=== PATIENT | male | born 1940 | race Caucasian/White ===

== ENCOUNTER 2016-07-22 18:42 | Inpatient (IN) | payer OTHER ==
[2016-07-22] MEDS ORDERED: MAGNESIUM SULF 50% (8.12 MEQ/2 ML-1 GM VIAL) IVPB ONE (20:44)
[2016-07-22] MEDS ORDERED: predniSONE 20 MG TABLET (UD) PO ONE (20:44)
[2016-07-22] MEDS ORDERED: ALBUTEROL SO4 2.5/IPRATROPIUM 0.5 INH SOL 3 ML VIAL.NEB. NEB ONE ×2 (20:44→20:59)
[2016-07-22] MEDS ORDERED: predniSONE 20 MG TABLET (UD) ONE (20:58)
[2016-07-22] MEDS ORDERED: MAGNESIUM SULF 50% (8.12 MEQ/2 ML-1 GM VIAL) ONE (20:58)
[2016-07-22 21:43] LABS: MCH 32.3 pg (25.7-33.7); MCHC 30.9 g/dl (32.0-35.9); MEAN CELL VOLUME 104.5 fl (80-96); MEAN PLT VOLUME 11.6 fl (7.5-11.1); PLATELET COUNT 87 K/MM3 (134-434); RDW 18.2 % (11.9-15.9)
[2016-07-22 21:46] LABS: WHITE BLOOD COUNT 32.1 K/mm3 (4.0-10.0)
[2016-07-22 21:58] LABS: INR 1.3 (0.82-1.09); PROTHROMBIN TIME (PATIENT) 14.4 SEC (9.98-11.88)
[2016-07-22 22:02] LABS: ALBUMIN 3.8 g/dl (3.4-5.0); BILIRUBIN,TOTAL 0.6 mg/dL (0.2-1.0); CALCIUM 8.3 mg/dL (8.5-10.1); CREATININE 1.8 mg/dL (0.7-1.3); TOT PROT 7.4 g/dl (6.4-8.2)
[2016-07-22 22:04] LABS: TROPONIN I 0.04 ng/ml (0.00-0.05)
[2016-07-22 22:23] LABS: ANISOCYTOSIS 1+; HYPOCHROMIA FEW; MICROCYTOSIS 1+; PLATELET COMMENT2 NO CLUMPING NOTED; PLATELET ESTIMATE DECREASED (NORMAL); POLYCHROMASIA FEW
[2016-07-22 22:24] LABS: DOHLE BODIES 1+; TOXIC GRANULATION FEW
[2016-07-22] MEDS ORDERED: SODIUM CHLORIDE 1,000 ML IV STA (22:35)
[2016-07-22] MEDS ORDERED: LEVOFLOXACIN 500 MG IVPB 100 ML IVPB ONE ×2 (22:35→22:45)
--- NOTE | 2016-07-22 23:18 | PDOC ---
History of Present Illness - History of Present Illness Initial Comments: 07/23/16 20:08 The patient is a 75 year old male, with a significant past medical history of COPD (diagnosed at urgent care today), who presents to the emergency department sent from urgent care for continued dyspnea and coughing after receiving 40 mg prednisone and 2 rounds of nebulizer treatments at urgent care today. The patient presents with his daughter who states she noticed a persistent dry cough and labored breathing for about a week. The patients daughter also states her father was walking slightly unbalanced today. He denies chest pain, headache and dizziness. He denies fever, chills, nausea, vomit, diarrhea and constipation. He denies dysuria, frequency, urgency and hematuria. Allergies: NKDA Social history: daily tobacco use PCP -Dr. Pacheco <Shannon Leiva - Last Filed: 07/23/16 00:36> <Denny Avila - Last Filed: 07/23/16 00:56> - General Chief Complaint: Shortness of Breath Stated Complaint: SOB Time Seen by Provider: 07/22/16 20:06 Past History <Shannon Leiva - Last Filed: 07/23/16 00:36> - Past Medical History COPD: Yes Diabetes: Yes HTN: Yes - Psycho/Social/Smoking Cessation Hx Suicidal Ideation: No Smoking History: Current every day smoker Have you smoked in the past 12 months: No Number of Cigarettes Smoked Daily: 20 Information on smoking cessation initiated: No Hx Alcohol Use: No Drug/Substance Use Hx: No <Denny Avila - Last Filed: 07/23/16 00:56> - Past Medical History Allergies/Adverse Reactions: Allergies Allergy/AdvReac Type Severity Reaction Status Date / Time No Known Allergies Allergy Verified 07/22/16 20:37 Home Medications: Ambulatory Orders Aspirin [ASA -] 81 mg PO DAILY 07/22/16 Glipizide 0 mg PO 07/22/16 Lisinopril 0 mg PO 07/22/16 Metformin HCl 0 mg PO 07/22/16 Simvastatin 0 07/22/16 Review of Systems - Review of Systems Able to Perform ROS?: Yes Comments:: 07/23/16 00:09 CONSTITUTIONAL: No fever, no chills, no fatigue EYES: No visual changes ENT: No ear pain, no sore throat CARDIOVASCULAR: No chest pain, no palpitations RESPIRATORY: (+) cough and SOB GI: No abdominal pain, no nausea, no vomiting, no constipation, no diarrhea GENITOURINARY: No dysuria, no frequency, no hematuria MUSKULOSKELETAL: No backpain, no joint pain, no myalgias SKIN: No rash NEURO: No headache <Shannon Leiva - Last Filed: 07/23/16 00:36> *Physical Exam - Vital Signs Last Vital Signs Temp Pulse Resp BP Pulse Ox 98.3 F 118 H 20 106/47 92 L 07/22/16 19:20 07/22/16 21:43 07/22/16 21:43 07/22/16 21:43 07/22/16 21:43 - Physical Exam Comments: 07/23/16 00:09 CONSTITUTIONAL: (+) in mild respiratory distress. Awake and Alert. Well- appearing; well-nourished; HEAD: Normocephalic; atraumatic EYES: PERRL; EOM intact ENMT: (+) ptosis of left upper lid (known to be old). normal oropharynx NECK: Supple; non-tender; no cervical lymphadenopathy CARD: Normal S1, S2; no murmurs, rubs, or gallops RESP: (+) Mildly tachypneic, Decreased air entry bilaterally, end expiratory wheezing and rhonchi more pronounced on the left side ABD: Soft, non-distended; non-tender; no palpable organomegaly, no palpable hernias EXT: Normal ROM in all four extremities; non-tender to palpation; distal pulses intact SKIN: Warm, dry, no rash NEURO: No focal neurological deficiencies. Gait is normal without ataxia. <Shannon Leiva - Last Filed: 07/23/16 00:36> - Vital Signs Last Vital Signs Temp Pulse Resp BP Pulse Ox 98.3 F 118 H 20 106/47 92 L 07/22/16 19:20 07/22/16 21:43 07/22/16 21:43 07/22/16 21:43 07/22/16 21:43 <Denny Avila - Last Filed: 07/23/16 00:56> Heart Score/ECG Review - ECG Intrepretation Comment:: 07/23/16 00:36 ECG was reviewed by Dr. Avila at 19:42 Impression: Sinus tachycardia. Right bundle branch block. Vent Rate: 112 bpm [place] Interval: 178 ms QTc: 453 ms <Shannon Leiva - Last Filed: 07/23/16 00:36> ED Treatment Course - LABORATORY CBC & Chemistry Diagram: 07/22/16 21:25 07/22/16 21:25 - ADDITIONAL ORDERS Additional order review: Laboratory Results 07/22/16 07/22/16 07/22/16 21:25 21:25 21:25 INR 1.30 H Sodium 140 Potassium 4.8 Chloride 106 Carbon Dioxide 25 Anion Gap 9 BUN 21 H Creatinine 1.8 H Creat Clearance w eGFR 36.77 Random Glucose 230 H Calcium 8.3 L Total Bilirubin 0.6 AST 30 ALT 19 Alkaline Phosphatase 43 L Creatine Kinase 511 H Creatine Kinase Index 0.5 CK-MB (CK-2) 2.655 CK-MB (CK-2) Rel Index Cancelled Troponin I 0.04 Total Protein 7.4 Albumin 3.8 07/22/16 21:25 RBC 3.63 L MCV 104.5 H MCHC 30.9 L RDW 18.2 H MPV 11.6 H Neutrophils % 74.0 Lymphocytes % 5.0 L Monocytes % 4.0 - Medications Given in the ED: ED Medications Discontinued Medications Generic Name Dose Route Start Last Admin Trade Name Freq PRN Reason Stop Dose Admin Albuterol/Ipratropium 2 amp 07/22/16 20:44 07/22/16 21:04 Duoneb - NEB 07/22/16 20:45 2 amp ONCE ONE Administration Levofloxacin 100 mls @ 100 mls/hr 07/22/16 22:35 07/22/16 23:05 Levaquin 500 Mg Premixed Ivpb - IVPB 07/22/16 23:34 100 mls/hr ONCE ONE Administration Sodium Chloride 1,000 mls @ 1,000 mls/hr 07/22/16 22:35 07/22/16 23:25 Normal Saline - IV 07/22/16 23:34 1,000 mls/hr ASDIR STA Administration Magnesium Sulfate 2 gm 07/22/16 20:44 07/22/16 21:04 Magnesium Sulfate IVPB 07/22/16 20:45 2 gm ONCE ONE Administration Prednisone 20 mg 07/22/16 20:44 07/22/16 21:04 Deltasone - PO 07/22/16 20:45 20 mg ONCE ONE Administration <Shannon Leiva - Last Filed: 07/23/16 00:36> - LABORATORY CBC & Chemistry Diagram: 07/22/16 21:25 07/22/16 21:25 - ADDITIONAL ORDERS Additional order review: Laboratory Results 07/22/16 07/22/16 07/22/16 21:25 21:25 21:25 INR 1.30 H Sodium 140 Potassium 4.8 Chloride 106 Carbon Dioxide 25 Anion Gap 9 BUN 21 H Creatinine 1.8 H Creat Clearance w eGFR 36.77 Random Glucose 230 H Calcium 8.3 L Total Bilirubin 0.6 AST 30 ALT 19 Alkaline Phosphatase 43 L Creatine Kinase 511 H CK-MB (CK-2) 2.655 CK-MB (CK-2) Rel Index Cancelled Troponin I 0.04 Total Protein 7.4 Albumin 3.8 07/22/16 21:25 RBC 3.63 L MCV 104.5 H MCHC 30.9 L RDW 18.2 H MPV 11.6 H Neutrophils % 74.0 Lymphocytes % 5.0 L Monocytes % 4.0 - RADIOLOGY Radiology Studies Ordered: Category Date Time Status CHEST PA & LAT [RAD] Stat Radiology 07/22/16 22:36 Taken - Medications Given in the ED: ED Medications Discontinued Medications Generic Name Dose Route Start Last Admin Trade Name Freq PRN Reason Stop Dose Admin Albuterol/Ipratropium 2 amp 07/22/16 20:44 07/22/16 21:04 Duoneb - NEB 07/22/16 20:45 2 amp ONCE ONE Administration Magnesium Sulfate 2 gm 07/22/16 20:44 07/22/16 21:04 Magnesium Sulfate IVPB 07/22/16 20:45 2 gm ONCE ONE Administration Prednisone 20 mg 07/22/16 20:44 07/22/16 21:04 Deltasone - PO 07/22/16 20:45 20 mg ONCE ONE Administration <Denny Avila - Last Filed: 07/23/16 00:56> Medical Decision Making - Medical Decision Making 07/23/16 00:25 75-year-old male with history of COPD, hypertension and diabetes presents to the ER with signs and symptoms of acute COPD exacerbation. Patient had been treated at the urgent care Center prior to presentation to the ER. Initial evaluation, patient was noted to be tachypneic and dyspneic, with significantly decreased air entry bilaterally, rhonchi and end expiratory wheezing. Patient had received Combivent therapy, additional dose of 20 g of prednisone and magnesium sulfate-2 g IV piggyback. Patient and also received IV fluids and Levaquin-500 mg IV piggyback. After period of observation, patient's air entry has improved significantly, he is able to speak full sentences, although becomes dyspneic upon exertion; O2 sat on RA is noted to be 92%. CBC reveals significant leukocytosis with 17% bandemia. Checks x-ray reveals no evidence of infiltrate or effusion at this time. Influenza swab is pending at this time. Patient will require admission further evaluation and treatment of acute COPD exacerbation and supplemental oxygen therapy. <Denny Avila - Last Filed: 07/23/16 00:56> *DC/Admit/Observation/Transfer - Attestations Scribe Attestion: 07/23/16 00:11 Documentation prepared by Shannon Leiva, acting as medical physics professor for Denny Avila MD <Shannon Leiva - Last Filed: 07/23/16 00:36> - Discharge Dispostion Admit: Yes - Attestations Physician Attestion: 07/23/16 00:24 The documentation was prepared by the scribe under my direct supervision. I have reviewed the documentation which correctly represents the findings, medical decision-making and critical action taken by me. <Denny Avila - Last Filed: 07/23/16 00:56> Diagnosis at time of Disposition: Acute exacerbation of chronic obstructive pulmonary disease (COPD), Influenza due to influenza virus, type A, human - Referrals Referrals: Parish Pacheco [Primary Care Provider] -
[2016-07-23] MEDS ORDERED: OSELTAMIVIR PHOSPHATE 75 MG CAPSULE PO ONE (00:54)
[2016-07-23] MEDS ORDERED: OSELTAMIVIR PHOSPHATE 75 MG CAPSULE ONE ×2 (01:25→13:13)
[2016-07-23] MEDS ORDERED: ALBUTEROL SO4 2.5/IPRATROPIUM 0.5 INH SOL 3 ML VIAL.NEB. NEB ONE ×3 (01:55→13:13)
[2016-07-23] MEDS: ALBUTEROL SO4 2.5/IPRATROPIUM 0.5 INH SOL 3 ML VIAL.NEB. NEB SCH ×4 (01:59→13:24)
[2016-07-23] MEDS: INSULIN SLIDING SCALE (NOVOLOG) 1 VIAL SQ SCH ×4 (08:00→23:02)
[2016-07-23] MEDS ORDERED: INSULIN REGULAR HUMAN 100 UNITS/ML *VIAL ONE ×3 (08:03→17:27)
[2016-07-23] MEDS: methylPREDNISolone NA SUCC 40 MG/1 ML VIAL IVPB SCH ×4 (08:05→22:55)
[2016-07-23] MEDS ORDERED: LISINOPRIL 5 MG TABLET (FP) ONE (08:07)
[2016-07-23] MEDS ORDERED: HEPARIN NA (PORCINE) 5,000 UNITS/ML 1ML VIAL ONE (08:07)
[2016-07-23] MEDS ORDERED: ASPIRIN 81 MG CHEWABLE TABLETS ONE (08:07)
[2016-07-23] MEDS ORDERED: methylPREDNISolone NA SUCC 40 MG/1 ML VIAL ONE ×2 (08:40→15:46)
[2016-07-23 08:45] LABS: MCH 33.5 pg (25.7-33.7); MCHC 31.8 g/dl (32.0-35.9); MEAN CELL VOLUME 105.2 fl (80-96); MEAN PLT VOLUME 11.9 fl (7.5-11.1); PLATELET COUNT 80 K/MM3 (134-434); RDW 17.6 % (11.9-15.9); WHITE BLOOD COUNT 28.9 K/mm3 (4.0-10.0)
[2016-07-23] MEDS: HEPARIN NA (PORCINE) 5,000 UNITS/ML 1ML VIAL SQ SCH ×2 (09:15→22:56)
[2016-07-23] MEDS: LISINOPRIL 10 MG TABLET (FP) PO SCH (09:15)
[2016-07-23] MEDS: ASPIRIN 81 MG CHEWABLE TABLETS PO SCH (09:15)
[2016-07-23 09:22] LABS: ALBUMIN 3.3 g/dl (3.4-5.0); BILIRUBIN,TOTAL 0.3 mg/dL (0.2-1.0); CREATININE 1.6 mg/dL (0.7-1.3); TOT PROT 6.6 g/dl (6.4-8.2); TROPONIN I 0.08 ng/ml (0.00-0.05)
[2016-07-23 09:59] LABS: URINE APPEARANCE CLEAR; URINE BILIRUBIN NEGATIVE (NEGATIVE); URINE COLOR LTYELLOW; URINE GLUCOSE (UA) 3+ (NEGATIVE); URINE KETONE NEGATIVE (NEGATIVE); URINE LEUK ESTERASE NEGATIVE (NEGATIVE); URINE NITRITE NEGATIVE (NEGATIVE); URINE UROBILINOGEN NEGATIVE E.U./dl (0.2-1.0)
[2016-07-23 10:03] LABS: URINE BLOOD 2+ (NEGATIVE); URINE PROTEIN 2+ (NEGATIVE)
[2016-07-23 10:41] LABS: MICROCYTOSIS 2+; PLATELET ESTIMATE DECREASED (NORMAL)
--- NOTE | 2016-07-23 10:56 | HP ---
Admitting History and Physical - Admission Chief Complaint: coughing and usteady gait History of Present Illness: The patient is a 75 year old male, with a significant past medical history of COPD (diagnosed at urgent care today), who presents to the emergency department sent from urgent care for continued dyspnea and coughing after receiving 40 mg prednisone and 2 rounds of nebulizer treatments at urgent care today. The patient presents with his daughter who states she noticed a persistent dry cough and labored breathing for about a week. The patients daughter also states her father was walking slightly unbalanced today.patient has been smoking for last 60 yrs one pack per day He denies chest pain, headache and dizziness. He denies fever, chills, nausea, vomit, diarrhea and constipation. He denies dysuria, frequency, urgency and hematuria. per daughter she noticed that last two days her father gait was unsteady and he was losing balance also he was coughing alot [facility] for hypoxia not improvign after prednisone nad albuterol inER got steroids ,nebs ,mag,tamiflu and levaquin and influenza A positve History Source: Family Member Limitations to Obtaining History: Language Barrier - Past Medical History Pulmonary: Yes: COPD - Smoking History Smoking history: Current every day smoker Have you smoked in the past 12 months: No Aproximately how many cigarettes per day: 20 - Alcohol/Substance Use Hx Alcohol Use: No Home Medications - Allergies Allergies/Adverse Reactions: Allergies Allergy/AdvReac Type Severity Reaction Status Date / Time No Known Allergies Allergy Verified 07/22/16 20:37 - Home Medications Home Medications: Ambulatory Orders Aspirin [ASA -] 81 mg PO DAILY 07/22/16 Glipizide 10 mg PO DAILY 07/22/16 Lisinopril 20 mg PO DAILY 07/22/16 Metformin HCl 500 mg PO DAILY 07/22/16 Simvastatin 20 mg PO DAILY 07/22/16 Review of Systems - Review of Systems Respiratory: reports: Cough Physical Examination Vital Signs: Vital Signs Temperature 98.2 F 07/23/16 07:20 Pulse Rate 97 H 07/23/16 07:20 Respiratory Rate 20 07/23/16 07:20 Blood Pressure 105/58 07/23/16 07:20 O2 Sat by Pulse Oximetry (%) 96 07/23/16 07:20 Constitutional: Yes: Calm Neck: Yes: Trachea Midline Cardiovascular: Yes: Regular Rate and Rhythm, S1, S2 Respiratory: Yes: On Nasal O2, Rhonchi, Wheezes Gastrointestinal: Yes: Normal Bowel Sounds, Soft Edema: No Neurological: Yes: Alert, Oriented Labs: CBC, BMP 07/23/16 08:00 07/23/16 08:00 Imaging - Results Chest X-ray: Report Reviewed Problem List - Problems (1) Acute exacerbation of chronic obstructive pulmonary disease (COPD) Assessment/Plan: pulm [\iv abx iv steroids oxygen bronchodiltors tamiflu droplet precautuions Code(s): J44.1 - CHRONIC OBSTRUCTIVE PULMONARY DISEASE W (ACUTE) EXACERBATION (2) Influenza A Assessment/Plan: tamiflu Code(s): J10.1 - FLU DUE TO OTH IDENT INFLUENZA VIRUS W OTH RESP MANIFEST (3) Elevated troponin Assessment/Plan: tele echo asa,statin, prnivil cardio eval Code(s): R79.89 - OTHER SPECIFIED ABNORMAL FINDINGS OF BLOOD CHEMISTRY (4) Unsteady gait Assessment/Plan: ct head neuro ent for YAVAPAI-PRESCOTT and r/o inner ear eitology for gait disturbance PT dvt ppx Code(s): R26.81 - UNSTEADINESS ON FEET
[2016-07-23 11:05] LABS: GRANULAR CASTS 8 /lpf; URINE HYALINE CAST 16 /lpf; URINE MUCUS RARE; URINE RBC <1 /hpf (0-3); URINE WBC 1 /hpf (3-5)
--- NOTE | 2016-07-23 11:19 | PN ---
Progress Note (short form) - Note Progress Note: ID Consult dictated Acute Influenza A Acute exacerbation COPD Leukocytosis possibly steroid-induced Thrombocytopenia, possibly secondary to viral infection Droplet precautions Tamiflu Levaquin Steroids/ bronchodilators
--- NOTE | 2016-07-23 11:21 | CONSULT ---
Consult Consult Specialty:: Neurology - History of Present Illness History of Present Illness: 75 yo consulted for gait difficulty however pat informs he has no problems with gait, motor sensation of cognitive dysfunction. - Past Medical History Pulmonary: Yes: COPD - Alcohol/Substance Use Hx Alcohol Use: No - Smoking History Smoking history: Current every day smoker Have you smoked in the past 12 months: No Aproximately how many cigarettes per day: 20 Home Medications - Allergies Allergies/Adverse Reactions: Allergies Allergy/AdvReac Type Severity Reaction Status Date / Time No Known Allergies Allergy Verified 07/22/16 20:37 - Home Medications Home Medications: Ambulatory Orders Aspirin [ASA -] 81 mg PO DAILY 07/22/16 Glipizide 10 mg PO DAILY 07/22/16 Lisinopril 20 mg PO DAILY 07/22/16 Metformin HCl 500 mg PO DAILY 07/22/16 Simvastatin 20 mg PO DAILY 07/22/16 Physical Exam Vital Signs: Vital Signs Temperature 98.2 F 07/23/16 07:20 Pulse Rate 97 H 07/23/16 07:20 Respiratory Rate 20 07/23/16 07:20 Blood Pressure 105/58 07/23/16 07:20 O2 Sat by Pulse Oximetry (%) 96 07/23/16 07:20 Constitutional: Yes: Well Nourished, No Distress, Mild Distress (respiratory) HENT: Yes: Atraumatic Neck: Yes: Supple Cardiovascular: Yes: Regular Rate and Rhythm Gastrointestinal: Yes: Soft Neurological: Yes: Alert, Oriented, Cran Nerves II-XII Intact. No: Aphasia, Ataxia, Facial Droop, Loss of Sensation, Weakness Labs: CBC, BMP 07/23/16 08:00 07/23/16 08:00 Assessment/Plan No acute neurological complaint or neurological deficit at this time Suggest PT evaluation for physical conditioning and gait training.
--- NOTE | 2016-07-23 12:09 | EKG ---
Test Reason : Blood Pressure : / mmHG Vent. Rate : 112 BPM Atrial Rate : 112 BPM P-R Int : 178 ms QRS Dur : 108 ms QT Int : 332 ms P-R-T Axes : 072 262 035 degrees QTc Int : 453 ms SINUS TACHYCARDIA RIGHT BUNDLE BRANCH BLOCK ABNORMAL ECG NO PREVIOUS ECGS AVAILABLE Confirmed by LORIE DANIEL MD ([id number]) on 07/23/2016 12:09:28 PM Referred By: Confirmed By:LORIE DANIEL MD
--- NOTE | 2016-07-23 12:36 | CONS ---
DATE OF CONSULTATION: 07/23/2016 HISTORY OF PRESENT ILLNESS: The patient is a 75-year-old male with a history of heavy tobacco use evaluated for acute influenza A and exacerbation of COPD. He had developed increasing shortness of breath and cough over the past several days. The family reports that he had had worsening dyspnea and cough productive of yellowish sputum for approximately 1 week. He was taken to an urgent care center where he was given nebulizer treatments and corticosteroids. He was referred to the emergency room with persistent shortness of breath. In the emergency room, patient was short of breath and was noted to have low O2 saturations on room air. An influenza swab was performed and was positive for influenza A. Chest x-ray shows no acute infiltrate. He was started on Tamiflu and given a stat dose of Levaquin. The patient is a heavy smoker. He reports stopping 2 days ago. He reports cough productive of yellowish sputum. He denies any chest pain or hemoptysis. No fever or chills. He denies any ill contacts. No recent hospitalizations. No recent antibiotic therapy. He states that he is up to date with respective influenza and pneumococcal vaccines. PAST MEDICAL HISTORY: Positive for COPD, hypertension, diabetes mellitus. ALLERGIES: No known allergies. MEDICATIONS: Aspirin, glipizide, lisinopril, metformin, simvastatin. SOCIAL HISTORY: Positive for heavy tobacco use, was smoking up until 2 days ago. He denies history of alcohol abuse, recent travel, or pet exposure. SYSTEMS REVIEW: Neurologic: No loss of consciousness, seizure activity, focal weakness. Cardiac: Negative chest pain or palpitations. Respiratory: As per HPI. Gastrointestinal: Negative for vomiting or diarrhea. Genitourinary: Negative for urinary tract infections. LABORATORY DATA: White count 32,000 with left shift, hematocrit 34.6, platelet count 80,000. BUN 23, creatinine 1.6. Chest x-ray showed some increased markings bilaterally, no focal infiltrate. PHYSICAL EXAMINATION: General: He is mildly short of breath at rest on nasal cannula O2. Vital signs: Temperature 98.2, blood pressure 105/58, pulse 97 and regular, respirations 20 per minute. HEENT: Sclerae anicteric. Dry mucous membranes. Heart: Heart sounds S1, S2. Lungs: Scattered rhonchi, crepitations at the bases bilaterally. No wheezing. Abdomen: Soft. No tenderness elicited. No mass, rebound, or rigidity. Extremities: Negative for edema. IMPRESSION: 1. Acute influenza A. 2. Acute exacerbation of chronic obstructive pulmonary disease. 3. Leukocytosis, likely steroid induced. 4. Thrombocytopenia, possibly secondary to viral infection. Place patient on droplet precautions, continue Tamiflu 75 mg p.o. b.i.d. for 5 days, empiric Levaquin. Obtain sputum culture, urine, legionella, and pneumococcal antigens. Intravenous corticosteroids, inhaled bronchodilators. Thank you for the kind referral. LORIE LY M.D. [id number]
[2016-07-23] MEDS ORDERED: LEVOFLOXACIN 500 MG IVPB 100 ML IVPB ONE (13:14)
[2016-07-23] MEDS: LEVOFLOXACIN 500 MG IVPB 100 ML IVPB SCH ×2 (13:24→14:36)
[2016-07-23] MEDS: OSELTAMIVIR PHOSPHATE 75 MG CAPSULE PO SCH ×3 (13:24→22:56)
[2016-07-23] MEDS ORDERED: ALBUTEROL SO4 0.083% IH SOL 2.5 MG/3 ML VIAL.NEB. NEB PRN (14:37)
--- NOTE | 2016-07-23 14:40 | CONSULT ---
Consult Consult Specialty:: PULM/CCM Referred by:: DIONICIO - History of Present Illness Chief Complaint: SOB History of Present Illness: 75 M, COPD due to smoking, presented to urgent care yesterday and was prescribed 40 mg prednisone and 2 rounds of nebulizer treatments. Brought to the ER due to progressive SOB and unsteady gait. No travel history or sick contacts. No documented fevers. No hemoptysis or night sweats. CXR: Hyperinflated lung jacobson / no clear pathology. - History Source History Provided By: Patient Limitations to Obtaining History: Poor Historian - Past Medical History Pulmonary: Yes: COPD - Alcohol/Substance Use Hx Alcohol Use: No - Smoking History Smoking history: Current every day smoker Have you smoked in the past 12 months: No Aproximately how many cigarettes per day: 20 Home Medications - Allergies Allergies/Adverse Reactions: Allergies Allergy/AdvReac Type Severity Reaction Status Date / Time No Known Allergies Allergy Verified 07/22/16 20:37 - Home Medications Home Medications: Ambulatory Orders Aspirin [ASA -] 81 mg PO DAILY 07/22/16 Glipizide 10 mg PO DAILY 07/22/16 Lisinopril 20 mg PO DAILY 07/22/16 Metformin HCl 500 mg PO DAILY 07/22/16 Simvastatin 20 mg PO DAILY 07/22/16 Review of Systems - Review of Systems Constitutional: reports: Malaise, Weakness. denies: Chills, Fever, Night Sweats , Unintentional Wgt. Loss Eyes: reports: No Symptoms HENT: reports: No Symptoms Neck: reports: No Symptoms Cardiovascular: reports: Shortness of Breath. denies: Chest Pain, Edema, Palpitations Respiratory: reports: Cough, SOB, SOB on Exertion, Wheezing. denies: Hemoptysis Gastrointestinal: reports: No Symptoms Genitourinary: reports: No Symptoms Breasts: reports: No Symptoms Reported Musculoskeletal: reports: No Symptoms Integumentary: reports: No Symptoms Neurological: reports: Unsteady Gait Endocrine: reports: No Symptoms Hematology/Lymphatic: reports: No Symptoms Psychiatric: reports: No Symptoms Physical Exam Vital Sings: Vital Signs Temperature 98.2 F 07/23/16 07:20 Pulse Rate 102 H 07/23/16 14:29 Respiratory Rate 19 07/23/16 14:29 Blood Pressure 112/59 07/23/16 14:29 O2 Sat by Pulse Oximetry (%) 96 07/23/16 14:29 Constitutional: Yes: Well Nourished, Mild Distress Eyes: Yes: Conjunctiva Clear, EOM Intact HENT: Yes: Atraumatic, Normocephalic Neck: Yes: Supple, Trachea Midline Cardiovascular: Yes: Tachycardia Respiratory: Yes: Cough, On Nasal O2, Rhonchi, Tachypnea, Wheezes. No: Accessory Muscle Use, Rales, Stridor ...Inspection: Yes: WNL ...Clubbing: No Gastrointestinal: Yes: WNL, Normal Bowel Sounds, Soft Renal/: Yes: WNL Musculoskeletal: Yes: WNL Extremities: Yes: WNL Edema: No Peripheral Pulses WNL: Yes Integumentary: Yes: WNL Neurological: Yes: Alert, Oriented ...Motor Strength: WNL Psychiatric: Yes: WNL, Alert, Oriented Labs: CBC, BMP 07/23/16 08:00 07/23/16 08:00 Imaging - Results Chest X-ray: Report Reviewed, Image Reviewed Problem List - Problems (1) Acute exacerbation of chronic obstructive pulmonary disease (COPD) Code(s): J44.1 - CHRONIC OBSTRUCTIVE PULMONARY DISEASE W (ACUTE) EXACERBATION (2) Elevated troponin Code(s): R79.89 - OTHER SPECIFIED ABNORMAL FINDINGS OF BLOOD CHEMISTRY (3) Influenza A Code(s): J10.1 - FLU DUE TO OTH IDENT INFLUENZA VIRUS W OTH RESP MANIFEST (4) Unsteady gait Code(s): R26.81 - UNSTEADINESS ON FEET Assessment/Plan PLAN: Medrol IV O2 as needed to maintain saturation BD TX Tamiflu Noted placed on empiric Levaquin Check urine Check sputum No smoking Will need outpatient PFTs Will follow Thank you. Dr Esposito
--- NOTE | 2016-07-23 15:09 | CONSULT ---
Consult Consult Specialty:: Cardiology Referred by:: Dr Cerna Reason for Consultation:: Elevated troponin I - History of Present Illness Chief Complaint: SOB, cough History of Present Illness: 75 yo male , smoker, with hx of DM 2, HTN, HLD, new dx of COPD, sent from [facility] emergency department because of continuous dyspnea and coughing after receiving 40 mg prednisone and 2 rounds of nebulizer treatments there. Patient was brought there by his daughter for a persistent dry cough and labored breathing for about a week. Both her (reportedly) and pt reported imbalance which is new. Patient denies hx of MA, CHF or CP syndrome. He further denies CP with this presentation. He says he went to play cards with friends 2 days ago. There, everyone (but him ) was wearing a mask as they were sick. He's been found with the flu and started on treatment We were asked to see him because of trop 0.08 - History Source History Provided By: Patient - Past Medical History Cardio/Vascular: Yes: HTN, Hyperlipdemia Pulmonary: Yes: COPD Endocrine: Yes: Diabetes Mellitus - Past Surgical History Past Surgical History: Yes: Cataract Removal (/bl), Hernia Repair (b/l inguinal) - Alcohol/Substance Use Hx Alcohol Use: No - Smoking History Smoking history: Current every day smoker (1 ppd for 65 yrs) Have you smoked in the past 12 months: No Aproximately how many cigarettes per day: 20 - Social History Usual Living Arrangement: With Spouse Place of : Other ([facility]) Home Medications - Allergies Allergies/Adverse Reactions: Allergies Allergy/AdvReac Type Severity Reaction Status Date / Time No Known Allergies Allergy Verified 07/22/16 20:37 - Home Medications Home Medications: Ambulatory Orders Aspirin [ASA -] 81 mg PO DAILY 07/22/16 Glipizide 10 mg PO DAILY 07/22/16 Lisinopril 20 mg PO DAILY 07/22/16 Metformin HCl 500 mg PO DAILY 07/22/16 Simvastatin 20 mg PO DAILY 07/22/16 Family Disease History - Family Disease History Family History: Denies (premature CAD) Review of Systems - Review of Systems Constitutional: reports: Malaise Eyes: reports: No Symptoms HENT: reports: No Symptoms Neck: reports: No Symptoms Cardiovascular: reports: Shortness of Breath Respiratory: reports: Cough, SOB, SOB on Exertion, Wheezing Gastrointestinal: reports: No Symptoms Neurological: reports: No Symptoms Hematology/Lymphatic: reports: No Symptoms Psychiatric: reports: No Symptoms Physical Exam Vital Signs: Vital Signs Temperature 98.2 F 07/23/16 07:20 Pulse Rate 102 H 07/23/16 14:29 Respiratory Rate 19 07/23/16 14:29 Blood Pressure 112/59 07/23/16 14:29 O2 Sat by Pulse Oximetry (%) 96 07/23/16 14:29 Constitutional: Yes: Mild Distress Eyes: Yes: Conjunctiva Clear HENT: Yes: Atraumatic Neck: Yes: Supple Cardiovascular: Yes: Regular Rate and Rhythm. No: Murmur Respiratory: Yes: Other (decreased BS). No: Rales, Rhonchi, Wheezes Gastrointestinal: Yes: Normal Bowel Sounds, Soft. No: Tenderness Extremities: Yes: Other (warm) Edema: No Peripheral Pulses WNL: Yes Neurological: Yes: Alert, Oriented Psychiatric: Yes: Alert, Oriented Labs: CBC, BMP 07/23/16 08:00 07/23/16 08:00 Imaging - Results Chest X-ray: Report Reviewed, Image Reviewed EKG: Report Reviewed, Image Reviewed Other: Other (Echo (today) -. prelim: Nl EF) Assessment/Plan 75 yo male, with the above history, here with acute influenza and COPD exacerbation He also has mild renal dysfunction (? baseline). His CPK is elevated -. rhabdo may be a factor In the above setting, his trop I has been 0.04 -> 0.08. In the setting of renal dysfunction, this value doesn't necessarily reflect ACS. In addition, EKG is w/o acute changes and pt has no CP His plts are low -. ? from acute infection His WBC is 30 -. from infection vs steroids that he received at [facility] emergency department Rec: Continue trending trop I Cont home BP, DM, and HLD meds Check TFTs and lipids Follow on echo results Consider mild hydration given the rhabdo -. follow renal function Per ID/pulm/Im Thanks! we'll follow!
--- NOTE | 2016-07-23 15:22 | CONSULT ---
Consult - text type - Consultation Consultation Note: Renal Consult for KANG vs. CKD This is a 75 year old Gentleman with PMhx of Hypertension, DM Type 2, COPD who presented with complaints of sob s/p failed neb and oral prednisone Tx at urgent care center and found to have BUN/Cr of 21/1.8. Pt denies any history of CKD. No prior records on [facility] to compare. Does use sporadic steroids on occasion but not recently. No contrast exposure. No Hx of kidney stones but does report right sided flank/lower back pain. No Chest pain. SOB is imporved. No fever chills. + Cough. + sputum production. No recent abx use. PMhx: as above AllergieS: NKDA Family Hx: NC Social Hx: No T/A/D ROS: as per HPI Home Meds: Medication Instructions Recorded Aspirin [ASA -] 81 mg PO DAILY 07/22/16 Glipizide 10 mg PO DAILY 07/22/16 Lisinopril 20 mg PO DAILY 07/22/16 Metformin HCl 500 mg PO DAILY 07/22/16 Simvastatin 20 mg PO DAILY 07/22/16 Vital Signs Temperature 98.2 F 07/23/16 07:20 Pulse Rate 102 H 07/23/16 14:29 Respiratory Rate 19 07/23/16 14:29 Blood Pressure 112/59 07/23/16 14:29 O2 Sat by Pulse Oximetry (%) 96 07/23/16 14:29 Intake & Output 07/20/16 07/21/16 07/22/16 07/23/16 23:59 23:59 23:59 23:59 Weight 161 lb Gen: NAD, awake and alert HEENT: NC/AT, MMM, NO JVD CVS: RRR, No M/R Lungs: Dec BS but no rales or wheeze Abd: Soft NT/ND Ext: no edema, clubbing or cyanosis : No bladder distension CBC, BMP 07/23/16 08:00 07/23/16 08:00 Current Medications Albuterol Sulfate (Ventolin 0.083% Nebulizer Soln -) 1 amp NEB QIDR [facility] Albuterol Sulfate (Ventolin 0.083% Nebulizer Soln -) 1 amp NEB Q4H PRN PRN Reason: SHORT OF BREATH/WHEEZING Aspirin (Asa -) 81 mg PO DAILY [facility] Last Admin: 07/23/16 09:15 Dose: 81 mg Atorvastatin Calcium (Lipitor -) 10 mg PO HS [facility] Heparin Sodium (Porcine) (Heparin -) 5,000 unit SQ BID [facility] Last Admin: 07/23/16 09:15 Dose: 5,000 unit Levofloxacin (Levaquin 500 Mg Premixed Ivpb -) 100 mls @ 100 mls/hr IVPB DAILY [facility] Last Admin: 07/23/16 14:36 Dose: Not Given Insulin Aspart (Novolog Vial Sliding Scale -) 1 vial SQ ACHS [facility] PRN Reason: Protocol Last Admin: 07/23/16 11:00 Dose: 2 units Lisinopril (Prinivil) 10 mg PO DAILY [facility] Last Admin: 07/23/16 09:15 Dose: 10 mg Methylprednisolone Sodium Succinate (Solu-Medrol -) 60 mg IVPB Q6H-IV [facility] Last Admin: 07/23/16 08:47 Dose: 60 mg Oseltamivir Phosphate (Tamiflu -) 75 mg PO BID [facility] Stop: 07/27/16 10:01 Last Admin: 07/23/16 14:36 Dose: Not Given A/P 75 year old Gentleman with PMhx of Hypertension, DM Type 2, COPD who presented with complaints of sob s/p failed neb and oral prednisone Tx at urgent care center and found to have BUN/Cr of 21/1.8. #Acute vs. Chronic Renal insufficiency with proteinuria Cr improved from 1.8 to 1.6 on presentation Check UCPR, FeNA Check Renal US r/o obstruction Trial of IVF NS at 84cc per hour x 24 hours can continue ACEi for now as no hyperkalemia and Cr improved/stable Hold Metformin Dose all med cor Cr Cl less then 50 avoid nsaids, iv contrast #COPD/SOB Continue steroids/Nebs Pulmonary follow up #Hypertension BP is at [place] on Lisinopril #DM Type 2 Check Hgb A1C Hold Metformin because of renal insufficiency Thank you Will follow regine Jaquez DO
[2016-07-23 19:08] LABS: TROPONIN I 0.11 ng/ml (0.00-0.05)
[2016-07-23] MEDS: ATORVASTATIN CA 10 MG TABLET (FP) PO SCH (22:56)
[2016-07-24] MEDS: methylPREDNISolone NA SUCC 40 MG/1 ML VIAL IVPB SCH ×4 (03:50→21:18)
[2016-07-24 04:18] VITALS: BMI 27.8
[2016-07-24] MEDS ORDERED: INSULIN (NOVOLOG) ASPART 100 UNITS/ML 10ML VIAL ONE ×2 (06:03→16:30)
[2016-07-24] MEDS: INSULIN SLIDING SCALE (NOVOLOG) 1 VIAL SQ SCH ×5 (06:03→21:44)
[2016-07-24 09:20] LABS: MCH 33.7 pg (25.7-33.7); MCHC 32.3 g/dl (32.0-35.9); MEAN CELL VOLUME 104.3 fl (80-96); MEAN PLT VOLUME 10.7 fl (7.5-11.1); PLATELET COUNT 76 K/MM3 (134-434); RDW 17.5 % (11.9-15.9); WHITE BLOOD COUNT 19.8 K/mm3 (4.0-10.0)
[2016-07-24] MEDS: LEVOFLOXACIN 500 MG IVPB 100 ML IVPB SCH (09:47)
[2016-07-24] MEDS: LISINOPRIL 10 MG TABLET (FP) PO SCH (09:48)
[2016-07-24] MEDS: OSELTAMIVIR PHOSPHATE 75 MG CAPSULE PO SCH ×2 (09:48→21:18)
[2016-07-24] MEDS: ASPIRIN 81 MG CHEWABLE TABLETS PO SCH (09:48)
[2016-07-24] MEDS: HEPARIN NA (PORCINE) 5,000 UNITS/ML 1ML VIAL SQ SCH ×2 (09:48→21:18)
[2016-07-24 09:59] LABS: ALBUMIN 2.9 g/dl (3.4-5.0); BILIRUBIN,TOTAL 0.2 mg/dL (0.2-1.0); CALCIUM 7.9 mg/dL (8.5-10.1); CREATININE 1.3 mg/dL (0.7-1.3); MAGNESIUM 2.6 mg/dL (1.8-2.4); TOT PROT 6.1 g/dl (6.4-8.2); TROPONIN I 0.08 ng/ml (0.00-0.05)
[2016-07-24] MEDS ORDERED: OSELTAMIVIR PHOSPHATE 75 MG CAPSULE PO SCH (10:00)
--- NOTE | 2016-07-24 10:03 | PN ---
Progress Note, Physician Chief Complaint: FEELS GOOD WANTS TO GO HOME - Current Medication List Current Medications: Active Medications Albuterol Sulfate (Ventolin 0.083% Nebulizer Soln -) 1 amp NEB QIDR [facility] Albuterol Sulfate (Ventolin 0.083% Nebulizer Soln -) 1 amp NEB Q4H PRN PRN Reason: SHORT OF BREATH/WHEEZING Aspirin (Asa -) 81 mg PO DAILY [facility] Last Admin: 07/24/16 09:48 Dose: 81 mg Atorvastatin Calcium (Lipitor -) 10 mg PO HS [facility] Last Admin: 07/23/16 22:56 Dose: 10 mg Heparin Sodium (Porcine) (Heparin -) 5,000 unit SQ BID [facility] Last Admin: 07/24/16 09:48 Dose: 5,000 unit Levofloxacin (Levaquin 500 Mg Premixed Ivpb -) 100 mls @ 100 mls/hr IVPB DAILY [facility] Last Admin: 07/24/16 09:47 Dose: 100 mls/hr Insulin Aspart (Novolog Vial Sliding Scale -) 1 vial SQ ACHS [facility] PRN Reason: Protocol Last Admin: 07/24/16 06:03 Dose: 4 units Lisinopril (Prinivil) 10 mg PO DAILY [facility] Last Admin: 07/24/16 09:48 Dose: 10 mg Methylprednisolone Sodium Succinate (Solu-Medrol -) 60 mg IVPB Q6H-IV [facility] Last Admin: 07/24/16 08:35 Dose: 60 mg Oseltamivir Phosphate (Tamiflu -) 75 mg PO BID [facility] Stop: 07/27/16 10:01 Last Admin: 07/24/16 09:48 Dose: 75 mg - Objective Vital Signs: Vital Signs Temperature 97.7 F 07/24/16 08:00 Pulse Rate 94 H 07/24/16 08:00 Respiratory Rate 20 07/24/16 08:00 Blood Pressure 146/73 07/24/16 08:00 O2 Sat by Pulse Oximetry (%) 94 L 07/23/16 22:00 Constitutional: Yes: Calm Cardiovascular: Yes: Regular Rate and Rhythm, S1, S2 Respiratory: Yes: Wheezes Gastrointestinal: Yes: Normal Bowel Sounds, Soft Edema: No Labs: CBC, BMP 07/24/16 08:00 INR, PTT INR 1.30 (0.82-1.09) H 07/22/16 21:25 Problem List - Problems (1) Acute exacerbation of chronic obstructive pulmonary disease (COPD) Code(s): J44.1 - CHRONIC OBSTRUCTIVE PULMONARY DISEASE W (ACUTE) EXACERBATION (2) Elevated troponin Code(s): R79.89 - OTHER SPECIFIED ABNORMAL FINDINGS OF BLOOD CHEMISTRY (3) Influenza A Code(s): J10.1 - FLU DUE TO OTH IDENT INFLUENZA VIRUS W OTH RESP MANIFEST (4) Unsteady gait Code(s): R26.81 - UNSTEADINESS ON FEET Assessment/Plan (1) Acute exacerbation of chronic obstructive pulmonary disease (COPD) Assessment/Plan: pulm [\iv abx iv steroids oxygen bronchodiltors tamiflu droplet precautuions Code(s): J44.1 - CHRONIC OBSTRUCTIVE PULMONARY DISEASE W (ACUTE) EXACERBATION (2) Influenza A Assessment/Plan: tamiflu Code(s): J10.1 - FLU DUE TO OTH IDENT INFLUENZA VIRUS W OTH RESP MANIFEST (3) Elevated troponin Assessment/Plan: trending up -> f/u tele echo asa,statin, prnivil cardio eval appreciated Code(s): R79.89 - OTHER SPECIFIED ABNORMAL FINDINGS OF BLOOD CHEMISTRY (4) Unsteady gait Assessment/Plan: ct head neuro ent for LAC COURTE OREILLES and r/o inner ear eitology for gait disturbance PT dvt ppx Code(s): R26.81 - UNSTEADINESS ON FEET COMPENSATION AND BENEFITS ADMINISTRATOR FM
--- NOTE | 2016-07-24 11:52 | PN ---
Progress Note, Physician History of Present Illness: No chest pain. - Current Medication List Current Medications: Active Medications Albuterol Sulfate (Ventolin 0.083% Nebulizer Soln -) 1 amp NEB QIDR [facility] Albuterol Sulfate (Ventolin 0.083% Nebulizer Soln -) 1 amp NEB Q4H PRN PRN Reason: SHORT OF BREATH/WHEEZING Aspirin (Asa -) 81 mg PO DAILY [facility] Last Admin: 07/24/16 09:48 Dose: 81 mg Atorvastatin Calcium (Lipitor -) 10 mg PO HS [facility] Last Admin: 07/23/16 22:56 Dose: 10 mg Heparin Sodium (Porcine) (Heparin -) 5,000 unit SQ BID [facility] Last Admin: 07/24/16 09:48 Dose: 5,000 unit Levofloxacin (Levaquin 500 Mg Premixed Ivpb -) 100 mls @ 100 mls/hr IVPB DAILY [facility] Last Admin: 07/24/16 09:47 Dose: 100 mls/hr Insulin Aspart (Novolog Vial Sliding Scale -) 1 vial SQ ACHS [facility] PRN Reason: Protocol Last Admin: 07/24/16 06:03 Dose: 4 units Lisinopril (Prinivil) 10 mg PO DAILY [facility] Last Admin: 07/24/16 09:48 Dose: 10 mg Methylprednisolone Sodium Succinate (Solu-Medrol -) 60 mg IVPB Q6H-IV [facility] Last Admin: 07/24/16 08:35 Dose: 60 mg Oseltamivir Phosphate (Tamiflu -) 75 mg PO BID [facility] Stop: 07/27/16 10:01 Last Admin: 07/24/16 09:48 Dose: 75 mg - Objective Vital Signs: Vital Signs Temperature 97.7 F 07/24/16 08:00 Pulse Rate 94 H 07/24/16 08:00 Respiratory Rate 20 07/24/16 08:00 Blood Pressure 146/73 07/24/16 08:00 O2 Sat by Pulse Oximetry (%) 94 L 07/23/16 22:00 Constitutional: Yes: Well Nourished, No Distress Eyes: Yes: Conjunctiva Clear, EOM Intact HENT: Yes: Atraumatic, Normocephalic Cardiovascular: Yes: Regular Rate and Rhythm Respiratory: Yes: CTA Bilaterally Gastrointestinal: Yes: Normal Bowel Sounds, Soft. No: Tenderness, Rebound Edema: No Labs: CBC, BMP 07/24/16 08:00 01/07/17 08:00 INR, PTT INR 1.30 (0.82-1.09) H 07/22/16 21:25 Assessment/Plan 75 yo male smoker, DM 2, HTN, hyperlipidemia, and new dx of COPD. Admitted from urgent care for persistent dyspnea and cough despite steroids and nebs. Diagnosed with influenza and acute COPD exacerbation. Cardiology consulted for mild troponin elevation. Trop 0.04 -> 0.08 -> 0.11 -> 0.08 in setting of acute renal failure with Cr 1.8. ECG only demonstrated sinus rhythm with RBBB. No chest pain to suggest ACS. Minimally elevated trops in setting of acute renal failure without chest pain is not clinically significant. Echocardiogram on 07/23/16 demonstrated normal LV systolic function, trivial pericardial effusion, mild MAC, mild MR/TR, RVSP 30-40 mmHg. No further inpatient cardiac evaluation or intervention is indicated at this time. Patient would benefit from outpatient nuclear stress test given his cardiac risk factors. However, this should be done after he has recovered from flu/COPD exacerbation. Will see prn. Call with questions.
--- NOTE | 2016-07-24 13:44 | PN ---
Progress Note, Physician History of Present Illness: PULMONARY ALERT,FEELING BETTER,LESS CONGESTED. - Current Medication List Current Medications: Active Medications Albuterol Sulfate (Ventolin 0.083% Nebulizer Soln -) 1 amp NEB QIDR [facility]BEK[facility] Albuterol Sulfate (Ventolin 0.083% Nebulizer Soln -) 1 amp NEB Q4H PRN PRN Reason: SHORT OF BREATH/WHEEZING Aspirin (Asa -) 81 mg PO DAILY [facility] Last Admin: 07/24/16 09:48 Dose: 81 mg Atorvastatin Calcium (Lipitor -) 10 mg PO HS [facility] Last Admin: 07/23/16 22:56 Dose: 10 mg Heparin Sodium (Porcine) (Heparin -) 5,000 unit SQ BID [facility] Last Admin: 07/24/16 09:48 Dose: 5,000 unit Levofloxacin (Levaquin 500 Mg Premixed Ivpb -) 100 mls @ 100 mls/hr IVPB DAILY [facility] Last Admin: 07/24/16 09:47 Dose: 100 mls/hr Insulin Aspart (Novolog Vial Sliding Scale -) 1 vial SQ ACHS [facility] PRN Reason: Protocol Last Admin: 07/24/16 12:07 Dose: 8 units Lisinopril (Prinivil) 10 mg PO DAILY [facility] Last Admin: 07/24/16 09:48 Dose: 10 mg Methylprednisolone Sodium Succinate (Solu-Medrol -) 60 mg IVPB Q6H-IV [facility] Last Admin: 07/24/16 08:35 Dose: 60 mg Oseltamivir Phosphate (Tamiflu -) 75 mg PO BID [facility] Stop: 07/27/16 10:01 Last Admin: 07/24/16 09:48 Dose: 75 mg - Objective Vital Signs: Vital Signs Temperature 97.7 F 07/24/16 08:00 Pulse Rate 94 H 07/24/16 08:00 Respiratory Rate 20 07/24/16 08:00 Blood Pressure 146/73 07/24/16 08:00 O2 Sat by Pulse Oximetry (%) 94 L 07/23/16 22:00 Constitutional: Yes: Well Nourished, Calm Eyes: Yes: WNL HENT: Yes: WNL Neck: Yes: WNL Cardiovascular: Yes: Regular Rate and Rhythm, S1, S2 Respiratory: Yes: Wheezes (SCATTERED SHADIA WHEEZES) Gastrointestinal: Yes: Normal Bowel Sounds, Soft Extremities: Yes: WNL Edema: No Labs: CBC, BMP 07/24/16 08:00 07/24/16 08:00 INR, PTT INR 1.30 (0.82-1.09) H 07/22/16 21:25 Assessment/Plan Problem List - Problems (1) Acute exacerbation of chronic obstructive pulmonary disease (COPD) Code(s): J44.1 - CHRONIC OBSTRUCTIVE PULMONARY DISEASE W (ACUTE) EXACERBATION (2) Elevated troponin Code(s): R79.89 - OTHER SPECIFIED ABNORMAL FINDINGS OF BLOOD CHEMISTRY (3) Influenza A Code(s): J10.1 - FLU DUE TO OTH IDENT INFLUENZA VIRUS W OTH RESP MANIFEST (4) Unsteady gait Code(s): R26.81 - UNSTEADINESS ON FEET Assessment/Plan PLAN: Taper Medrol IV O2 as needed to maintain saturation BD TX Tamiflu PFTs outpatient Low dose chest ct DR DUCKWORTH
--- NOTE | 2016-07-24 15:33 | PN ---
Progress Note, Physician Chief Complaint: Patient seen in bed No new complaints. No chest pains Maintains good urine output. - Current Medication List Current Medications: Active Medications Albuterol Sulfate (Ventolin 0.083% Nebulizer Soln -) 1 amp NEB QIDR REBEK[facility] Albuterol Sulfate (Ventolin 0.083% Nebulizer Soln -) 1 amp NEB Q4H PRN PRN Reason: SHORT OF BREATH/WHEEZING Aspirin (Asa -) 81 mg PO DAILY [facility] Last Admin: 07/24/16 09:48 Dose: 81 mg Atorvastatin Calcium (Lipitor -) 10 mg PO HS [facility] Last Admin: 07/23/16 22:56 Dose: 10 mg Heparin Sodium (Porcine) (Heparin -) 5,000 unit SQ BID [facility] Last Admin: 07/24/16 09:48 Dose: 5,000 unit Levofloxacin (Levaquin 500 Mg Premixed Ivpb -) 100 mls @ 100 mls/hr IVPB DAILY [facility] Last Admin: 07/24/16 09:47 Dose: 100 mls/hr Insulin Aspart (Novolog Vial Sliding Scale -) 1 vial SQ ACHS [facility] PRN Reason: Protocol Last Admin: 07/24/16 12:07 Dose: 8 units Lisinopril (Prinivil) 10 mg PO DAILY [facility] Last Admin: 07/24/16 09:48 Dose: 10 mg Methylprednisolone Sodium Succinate (Solu-Medrol -) 40 mg IVPB Q6H-IV [facility] Last Admin: 07/24/16 14:15 Dose: 40 mg Oseltamivir Phosphate (Tamiflu -) 75 mg PO BID [facility] Stop: 07/27/16 10:01 Last Admin: 07/24/16 09:48 Dose: 75 mg - Objective Vital Signs: Vital Signs Temperature 97.7 F 07/24/16 08:00 Pulse Rate 94 H 07/24/16 08:00 Respiratory Rate 20 07/24/16 08:00 Blood Pressure 146/73 07/24/16 08:00 O2 Sat by Pulse Oximetry (%) 94 L 07/23/16 22:00 Constitutional: Yes: Well Nourished, No Distress, Anxious Eyes: Yes: WNL HENT: Yes: WNL Neck: Yes: WNL, Supple Cardiovascular: Yes: Regular Rate and Rhythm, S1, S2 Respiratory: Yes: Cough, Diminished, Rhonchi Gastrointestinal: Yes: Normal Bowel Sounds Edema: No Labs: CBC, BMP 07/24/16 08:00 07/24/16 08:00 INR, PTT INR 1.30 (0.82-1.09) H 07/22/16 21:25 Problem List - Problems (1) Acute exacerbation of chronic obstructive pulmonary disease (COPD) Code(s): J44.1 - CHRONIC OBSTRUCTIVE PULMONARY DISEASE W (ACUTE) EXACERBATION (2) Elevated troponin Code(s): R79.89 - OTHER SPECIFIED ABNORMAL FINDINGS OF BLOOD CHEMISTRY (3) Influenza A Code(s): J10.1 - FLU DUE TO OTH IDENT INFLUENZA VIRUS W OTH RESP MANIFEST (4) Acute kidney failure Code(s): N17.9 - ACUTE KIDNEY FAILURE, UNSPECIFIED (5) Rhabdomyolysis Code(s): M62.82 - RHABDOMYOLYSIS Assessment/Plan 1. Acute Rhabdomyolysis. Non traumatic. serum CPK tends to stabilize 2. Acute Kidney failure, possibly Hemodynamic in etiology. To some degree the azotemia is steroid dependent. Azotemia improving 3. Acute Respiratory Infection, with possibly acute exacerbation of COPD. Plan: Agree with the current regimen. Monitor the renal functions with you. Thank you. Olive Kidd MD
--- NOTE | 2016-07-24 16:57 | PN ---
Progress Note, Physician History of Present Illness: 75 yo consulted for gait difficulty however pat informs he has no problems with gait, motor sensation of cognitive dysfunction. Would like to take shower. - Current Medication List Current Medications: Active Medications Albuterol Sulfate (Ventolin 0.083% Nebulizer Soln -) 1 amp NEB QIDR REBEKAH Albuterol Sulfate (Ventolin 0.083% Nebulizer Soln -) 1 amp NEB Q4H PRN PRN Reason: SHORT OF BREATH/WHEEZING Aspirin (Asa -) 81 mg PO DAILY [facility] Last Admin: 07/24/16 09:48 Dose: 81 mg Atorvastatin Calcium (Lipitor -) 10 mg PO HS [facility] Last Admin: 07/23/16 22:56 Dose: 10 mg Heparin Sodium (Porcine) (Heparin -) 5,000 unit SQ BID [facility] Last Admin: 07/24/16 09:48 Dose: 5,000 unit Levofloxacin (Levaquin 500 Mg Premixed Ivpb -) 100 mls @ 100 mls/hr IVPB DAILY [facility] Last Admin: 07/24/16 09:47 Dose: 100 mls/hr Insulin Aspart (Novolog Vial Sliding Scale -) 1 vial SQ ACHS [facility] PRN Reason: Protocol Last Admin: 07/24/16 16:42 Dose: 4 units Lisinopril (Prinivil) 10 mg PO DAILY [facility] Last Admin: 07/24/16 09:48 Dose: 10 mg Methylprednisolone Sodium Succinate (Solu-Medrol -) 40 mg IVPB Q6H-IV [facility] Last Admin: 07/24/16 14:15 Dose: 40 mg Oseltamivir Phosphate (Tamiflu -) 75 mg PO BID [facility] Stop: 07/27/16 10:01 Last Admin: 07/24/16 09:48 Dose: 75 mg - Objective Vital Signs: Vital Signs Temperature 97.5 F L 07/24/16 15:28 Pulse Rate 85 07/24/16 15:28 Respiratory Rate 20 07/24/16 08:00 Blood Pressure 146/73 07/24/16 08:00 O2 Sat by Pulse Oximetry (%) 94 L 07/24/16 09:00 Neurological: Yes: Alert, Babinski negative, Cran Nerves II-XII Intact. No: Aphasia, Ataxia, Facial Droop, Loss of Sensation, Unsteady Gait, Weakness Labs: CBC, BMP 07/24/16 08:00 07/24/16 08:00 INR, PTT INR 1.30 (0.82-1.09) H 07/22/16 21:25 Assessment/Plan No acute neurological complaint or neurological deficit at this time with neg head ct Suggest PT evaluation for physical conditioning and gait training. Will follow intermittently, please call if needed.
[2016-07-24] MEDS: ALBUTEROL SO4 0.083% IH SOL 2.5 MG/3 ML VIAL.NEB. NEB SCH (19:34)
[2016-07-24] MEDS ORDERED: PT OWN MED DRAWER 7, Y5N ONE (20:56)
[2016-07-24] MEDS: ATORVASTATIN CA 10 MG TABLET (FP) PO SCH (21:18)
[2016-07-25] MEDS: methylPREDNISolone NA SUCC 40 MG/1 ML VIAL IVPB SCH ×4 (02:06→21:13)
[2016-07-25] MEDS: INSULIN SLIDING SCALE (NOVOLOG) 1 VIAL SQ SCH ×4 (06:36→21:13)
[2016-07-25 08:27] LABS: BASOPHIL 0.2 % (0-2.0); MCH 33.5 pg (25.7-33.7); MCHC 32.4 g/dl (32.0-35.9); MEAN CELL VOLUME 103.5 fl (80-96); MEAN PLT VOLUME 12.2 fl (7.5-11.1); NEUTROPHILS 93.4 % (42.8-82.8); PLATELET COUNT 80 K/MM3 (134-434); RDW 17.3 % (11.9-15.9); WHITE BLOOD COUNT 11.8 K/mm3 (4.0-10.0)
[2016-07-25 08:56] LABS: ALBUMIN 2.8 g/dl (3.4-5.0); CALCIUM 8.2 mg/dL (8.5-10.1); CREATININE 1.3 mg/dL (0.7-1.3)
[2016-07-25 08:58] LABS: BILIRUBIN,TOTAL 0.2 mg/dL (0.2-1.0); TOT PROT 5.7 g/dl (6.4-8.2)
[2016-07-25] MEDS ORDERED: PT OWN MED DRAWER 7, Y5N ONE (09:50)
[2016-07-25] MEDS: HEPARIN NA (PORCINE) 5,000 UNITS/ML 1ML VIAL SQ SCH ×2 (09:53→21:13)
[2016-07-25] MEDS: LISINOPRIL 10 MG TABLET (FP) PO SCH (09:54)
[2016-07-25] MEDS: OSELTAMIVIR PHOSPHATE 75 MG CAPSULE PO SCH ×2 (09:54→21:12)
[2016-07-25] MEDS: LEVOFLOXACIN 500 MG IVPB 100 ML IVPB SCH (09:54)
[2016-07-25] MEDS: ASPIRIN 81 MG CHEWABLE TABLETS PO SCH (09:54)
[2016-07-25] MEDS ORDERED: INSULIN (NOVOLOG) ASPART 100 UNITS/ML 10ML VIAL ONE (11:25)
[2016-07-25] MEDS: ALBUTEROL SO4 0.083% IH SOL 2.5 MG/3 ML VIAL.NEB. NEB SCH ×3 (12:00→23:04)
--- NOTE | 2016-07-25 12:36 | PN ---
Progress Note, Physician Chief Complaint: FEELS GOOD - Current Medication List Current Medications: Active Medications Albuterol Sulfate (Ventolin 0.083% Nebulizer Soln -) 1 amp NEB QIDR [facility] Last Admin: 07/24/16 19:34 Dose: 1 amp Albuterol Sulfate (Ventolin 0.083% Nebulizer Soln -) 1 amp NEB Q4H PRN PRN Reason: SHORT OF BREATH/WHEEZING Aspirin (Asa -) 81 mg PO DAILY [facility] Last Admin: 07/25/16 09:54 Dose: 81 mg Atorvastatin Calcium (Lipitor -) 10 mg PO HS [facility] Last Admin: 07/24/16 21:18 Dose: 10 mg Heparin Sodium (Porcine) (Heparin -) 5,000 unit SQ BID [facility] Last Admin: 07/25/16 09:53 Dose: 5,000 unit Levofloxacin (Levaquin 500 Mg Premixed Ivpb -) 100 mls @ 100 mls/hr IVPB DAILY [facility] Last Admin: 07/25/16 09:54 Dose: 100 mls/hr Insulin Aspart (Novolog Vial Sliding Scale -) 1 vial SQ ACHS [facility] PRN Reason: Protocol Last Admin: 07/25/16 11:28 Dose: 8 units Lisinopril (Prinivil) 10 mg PO DAILY [facility] Last Admin: 07/25/16 09:54 Dose: 10 mg Methylprednisolone Sodium Succinate (Solu-Medrol -) 40 mg IVPB Q6H-IV [facility] Last Admin: 07/25/16 09:54 Dose: 40 mg Oseltamivir Phosphate (Tamiflu -) 75 mg PO BID [facility] Stop: 07/27/16 10:01 Last Admin: 07/25/16 09:54 Dose: 75 mg - Objective Vital Signs: Vital Signs Temperature 98.0 F 07/25/16 09:01 Pulse Rate 71 07/25/16 09:01 Respiratory Rate 20 07/25/16 09:01 Blood Pressure 131/65 07/25/16 09:01 O2 Sat by Pulse Oximetry (%) 95 07/25/16 09:00 Constitutional: Yes: Calm Cardiovascular: Yes: Regular Rate and Rhythm, S1, S2 Respiratory: Yes: Wheezes Gastrointestinal: Yes: Normal Bowel Sounds, Soft Edema: No Labs: CBC, BMP 07/25/16 07:30 07/25/16 07:30 INR, PTT INR 1.30 (0.82-1.09) H 07/22/16 21:25 Problem List - Problems (1) Acute exacerbation of chronic obstructive pulmonary disease (COPD) Code(s): J44.1 - CHRONIC OBSTRUCTIVE PULMONARY DISEASE W (ACUTE) EXACERBATION (2) Elevated troponin Code(s): R79.89 - OTHER SPECIFIED ABNORMAL FINDINGS OF BLOOD CHEMISTRY (3) Influenza A Code(s): J10.1 - FLU DUE TO OTH IDENT INFLUENZA VIRUS W OTH RESP MANIFEST (4) Unsteady gait Code(s): R26.81 - UNSTEADINESS ON FEET (5) Diabetes Code(s): E11.9 - TYPE 2 DIABETES MELLITUS WITHOUT COMPLICATIONS Assessment/Plan (1) Acute exacerbation of chronic obstructive pulmonary disease (COPD) Assessment/Plan: pulm iv abx iv steroids oxygen bronchodiltors tamiflu droplet precautuions Code(s): J44.1 - CHRONIC OBSTRUCTIVE PULMONARY DISEASE W (ACUTE) EXACERBATION (2) Influenza A Assessment/Plan: tamiflu Code(s): J10.1 - FLU DUE TO OTH IDENT INFLUENZA VIRUS W OTH RESP MANIFEST (3) Elevated troponin Assessment/Plan: trending up -> f/u tele echo asa,statin, prnivil cardio eval appreciated Code(s): R79.89 - OTHER SPECIFIED ABNORMAL FINDINGS OF BLOOD CHEMISTRY (4) Unsteady gait Assessment/Plan: ct head neuro ent for [place] and r/o inner ear eitology for gait disturbance PT dvt ppx Code(s): R26.81 - UNSTEADINESS ON FEET (5) Diabetes Code(s): E11.9 - TYPE 2 DIABETES MELLITUS WITHOUT COMPLICATIONS a1c 6.9 bgm/iss - sam HOGAN
[2016-07-25] MEDS: INSULIN DETEMIR 100 UNITS/ML MDV SQ SCH ×2 (13:20→21:13)
--- NOTE | 2016-07-25 14:11 | PN ---
Progress Note, Physician History of Present Illness: pulmonary alert,feeling better,less congested - Current Medication List Current Medications: Active Medications Albuterol Sulfate (Ventolin 0.083% Nebulizer Soln -) 1 amp NEB QIDR [facility] Last Admin: 07/25/16 12:00 Dose: 1 amp Albuterol Sulfate (Ventolin 0.083% Nebulizer Soln -) 1 amp NEB Q4H PRN PRN Reason: SHORT OF BREATH/WHEEZING Aspirin (Asa -) 81 mg PO DAILY [facility] Last Admin: 07/25/16 09:54 Dose: 81 mg Atorvastatin Calcium (Lipitor -) 10 mg PO HS [facility] Last Admin: 07/24/16 21:18 Dose: 10 mg Heparin Sodium (Porcine) (Heparin -) 5,000 unit SQ BID [facility] Last Admin: 07/25/16 09:53 Dose: 5,000 unit Levofloxacin (Levaquin 500 Mg Premixed Ivpb -) 100 mls @ 100 mls/hr IVPB DAILY [facility] Last Admin: 07/25/16 09:54 Dose: 100 mls/hr Insulin Aspart (Novolog Vial Sliding Scale -) 1 vial SQ ACHS [facility] PRN Reason: Protocol Last Admin: 07/25/16 11:28 Dose: 8 units Insulin Detemir (Levemir Vial) 5 units SQ BID@0700,2200 [facility] Last Admin: 07/25/16 13:20 Dose: 5 units Lisinopril (Prinivil) 10 mg PO DAILY [facility] Last Admin: 07/25/16 09:54 Dose: 10 mg Methylprednisolone Sodium Succinate (Solu-Medrol -) 40 mg IVPB Q6H-IV [facility] Last Admin: 07/25/16 09:54 Dose: 40 mg Oseltamivir Phosphate (Tamiflu -) 75 mg PO BID [facility] Stop: 07/27/16 10:01 Last Admin: 07/25/16 09:54 Dose: 75 mg - Objective Vital Signs: Vital Signs Temperature 98.0 F 07/25/16 09:01 Pulse Rate 71 07/25/16 09:01 Respiratory Rate 20 07/25/16 09:01 Blood Pressure 131/65 07/25/16 09:01 O2 Sat by Pulse Oximetry (%) 95 07/25/16 09:00 Constitutional: Yes: Well Nourished, Calm Eyes: Yes: WNL HENT: Yes: WNL Cardiovascular: Yes: Regular Rate and Rhythm, S1, S2 Respiratory: Yes: Wheezes (bilateral wheezes) Gastrointestinal: Yes: Normal Bowel Sounds, Soft Extremities: Yes: WNL Edema: No Labs: CBC, BMP 07/25/16 07:30 07/25/16 07:30 INR, PTT INR 1.30 (0.82-1.09) H 07/22/16 21:25 Assessment/Plan Problem List - Problems (1) Acute exacerbation of chronic obstructive pulmonary disease (COPD) Code(s): J44.1 - CHRONIC OBSTRUCTIVE PULMONARY DISEASE W (ACUTE) EXACERBATION (2) Elevated troponin Code(s): R79.89 - OTHER SPECIFIED ABNORMAL FINDINGS OF BLOOD CHEMISTRY (3) Influenza A Code(s): J10.1 - FLU DUE TO OTH IDENT INFLUENZA VIRUS W OTH RESP MANIFEST (4) Unsteady gait Code(s): R26.81 - UNSTEADINESS ON FEET THROMBOCYTOPENIA Assessment/Plan PLAN: Taper Medrol IV O2 as needed to maintain saturation BD TX Tamiflu PFTs outpatient Low dose chest ct solumedrol same dose monitor plt ct DR DUCKWORTH
--- NOTE | 2016-07-25 14:28 | PN ---
Progress Note, Physician Chief Complaint: Patient seen in bed No new complaints. Still with cough No chest pains Maintains good urine output. - Current Medication List Current Medications: Active Medications Albuterol Sulfate (Ventolin 0.083% Nebulizer Soln -) 1 amp NEB QIDR [facility] Last Admin: 07/25/16 12:00 Dose: 1 amp Albuterol Sulfate (Ventolin 0.083% Nebulizer Soln -) 1 amp NEB Q4H PRN PRN Reason: SHORT OF BREATH/WHEEZING Aspirin (Asa -) 81 mg PO DAILY [facility] Last Admin: 07/25/16 09:54 Dose: 81 mg Atorvastatin Calcium (Lipitor -) 10 mg PO HS [facility] Last Admin: 07/24/16 21:18 Dose: 10 mg Heparin Sodium (Porcine) (Heparin -) 5,000 unit SQ BID [facility] Last Admin: 07/25/16 09:53 Dose: 5,000 unit Levofloxacin (Levaquin 500 Mg Premixed Ivpb -) 100 mls @ 100 mls/hr IVPB DAILY [facility] Last Admin: 07/25/16 09:54 Dose: 100 mls/hr Insulin Aspart (Novolog Vial Sliding Scale -) 1 vial SQ ACHS [facility] PRN Reason: Protocol Last Admin: 07/25/16 11:28 Dose: 8 units Insulin Detemir (Levemir Vial) 5 units SQ BID@0700,2200 [facility] Last Admin: 07/25/16 13:20 Dose: 5 units Lisinopril (Prinivil) 10 mg PO DAILY [facility] Last Admin: 07/25/16 09:54 Dose: 10 mg Methylprednisolone Sodium Succinate (Solu-Medrol -) 40 mg IVPB Q6H-IV [facility] Last Admin: 07/25/16 09:54 Dose: 40 mg Oseltamivir Phosphate (Tamiflu -) 75 mg PO BID [facility] Stop: 07/27/16 10:01 Last Admin: 07/25/16 09:54 Dose: 75 mg - Objective Vital Signs: Vital Signs Temperature 98.0 F 07/25/16 09:01 Pulse Rate 71 07/25/16 09:01 Respiratory Rate 20 07/25/16 09:01 Blood Pressure 131/65 07/25/16 09:01 O2 Sat by Pulse Oximetry (%) 95 07/25/16 09:00 Constitutional: Yes: Well Nourished Eyes: Yes: WNL, Conjunctiva Clear HENT: Yes: WNL, Atraumatic, Normocephalic Neck: Yes: WNL, Supple, Trachea Midline Cardiovascular: Yes: WNL, Regular Rate and Rhythm Respiratory: Yes: Regular, Poor Air Entry, Rhonchi Gastrointestinal: Yes: WNL, Normal Bowel Sounds Genitourinary: Yes: WNL Labs: CBC, BMP 07/25/16 07:30 07/25/16 07:30 INR, PTT INR 1.30 (0.82-1.09) H 07/22/16 21:25 Problem List - Problems (1) Acute exacerbation of chronic obstructive pulmonary disease (COPD) Code(s): J44.1 - CHRONIC OBSTRUCTIVE PULMONARY DISEASE W (ACUTE) EXACERBATION (2) Elevated troponin Code(s): R79.89 - OTHER SPECIFIED ABNORMAL FINDINGS OF BLOOD CHEMISTRY (3) Influenza A Code(s): J10.1 - FLU DUE TO OTH IDENT INFLUENZA VIRUS W OTH RESP MANIFEST (4) Acute kidney failure Code(s): N17.9 - ACUTE KIDNEY FAILURE, UNSPECIFIED (5) Rhabdomyolysis Code(s): M62.82 - RHABDOMYOLYSIS Assessment/Plan 1. Acute Rhabdomyolysis. Non traumatic. Serum CPK tends to stabilize towards normal 2. Acute Kidney failure, possibly Hemodynamic in etiology. To some degree the azotemia is steroid dependent. Azotemia improving. Can't r/o a pre-existing Pre Renal azotemia. 3. Acute Respiratory Infection, with possibly acute exacerbation of COPD. 4. Influenza... On Tamiflu Plan: Agree with the current regimen. Will monitor the renal functions with you. Thank you. Olive Kidd MD
[2016-07-25] MEDS ORDERED: INSULIN DETEMIR 100 UNITS/ML MDV SQ ONE (21:09)
[2016-07-25] MEDS: ATORVASTATIN CA 10 MG TABLET (FP) PO SCH (21:12)
[2016-07-26] MEDS: methylPREDNISolone NA SUCC 40 MG/1 ML VIAL IVPB SCH ×3 (02:29→09:33)
[2016-07-26] MEDS: ALBUTEROL SO4 0.083% IH SOL 2.5 MG/3 ML VIAL.NEB. NEB SCH ×3 (06:40→18:55)
[2016-07-26] MEDS: INSULIN SLIDING SCALE (NOVOLOG) 1 VIAL SQ SCH ×4 (06:47→23:14)
[2016-07-26] MEDS: INSULIN DETEMIR 100 UNITS/ML MDV SQ SCH ×2 (06:47→23:13)
--- NOTE | 2016-07-26 08:19 | PN ---
Progress Note, Physician History of Present Illness: CONTINUES WITH COUGH - Current Medication List Current Medications: Active Medications Albuterol Sulfate (Ventolin 0.083% Nebulizer Soln -) 1 amp NEB QIDR [facility] Last Admin: 07/26/16 06:40 Dose: 1 amp Albuterol Sulfate (Ventolin 0.083% Nebulizer Soln -) 1 amp NEB Q4H PRN PRN Reason: SHORT OF BREATH/WHEEZING Aspirin (Asa -) 81 mg PO DAILY [facility] Last Admin: 07/25/16 09:54 Dose: 81 mg Atorvastatin Calcium (Lipitor -) 10 mg PO HS [facility] Last Admin: 07/25/16 21:12 Dose: 10 mg Heparin Sodium (Porcine) (Heparin -) 5,000 unit SQ BID [facility] Last Admin: 07/25/16 21:13 Dose: 5,000 unit Levofloxacin (Levaquin 500 Mg Premixed Ivpb -) 100 mls @ 100 mls/hr IVPB DAILY [facility] Last Admin: 07/25/16 09:54 Dose: 100 mls/hr Insulin Aspart (Novolog Vial Sliding Scale -) 1 vial SQ ACHS [facility] PRN Reason: Protocol Last Admin: 07/26/16 06:47 Dose: 4 units Insulin Detemir (Levemir Vial) 5 units SQ BID@0700,2200 [facility] Last Admin: 07/26/16 06:47 Dose: 5 units Lisinopril (Prinivil) 10 mg PO DAILY [facility] Last Admin: 07/25/16 09:54 Dose: 10 mg Methylprednisolone Sodium Succinate (Solu-Medrol -) 40 mg IVPB Q6H-IV [facility] Last Admin: 07/26/16 02:29 Dose: 40 mg Oseltamivir Phosphate (Tamiflu -) 75 mg PO BID [facility] Stop: 07/27/16 10:01 Last Admin: 07/25/16 21:12 Dose: 75 mg - Objective Vital Signs: Vital Signs Temperature 98.1 F 07/26/16 05:00 Pulse Rate 65 07/26/16 05:00 Respiratory Rate 16 07/26/16 05:00 Blood Pressure 129/59 07/26/16 05:00 O2 Sat by Pulse Oximetry (%) 95 07/25/16 21:00 Cardiovascular: Yes: Regular Rate and Rhythm Respiratory: Yes: On Nasal O2, Rhonchi Gastrointestinal: Yes: Normal Bowel Sounds, Soft Edema: No Labs: INR, PTT INR 1.30 (0.82-1.09) H 07/22/16 21:25 Assessment/Plan Assessment/Plan (1) Acute exacerbation of chronic obstructive pulmonary disease (COPD) Assessment/Plan: pulm iv abx iv steroids oxygen bronchodilators tamiflu droplet precautions CT OF CHEST Code(s): J44.1 - CHRONIC OBSTRUCTIVE PULMONARY DISEASE W (ACUTE) EXACERBATION (2) Influenza A Assessment/Plan: tamiflu Code(s): J10.1 - FLU DUE TO OTH IDENT INFLUENZA VIRUS W OTH RESP MANIFEST (3) Elevated troponin Assessment/Plan: trending up -> f/u tele echo asa,statin, Prinivil cardio eval appreciated Code(s): R79.89 - OTHER SPECIFIED ABNORMAL FINDINGS OF BLOOD CHEMISTRY (4) Unsteady gait Assessment/Plan: ct head neuro ent for [place] and r/o inner ear etiology for gait disturbance PT dvt ppx Code(s): R26.81 - UNSTEADINESS ON FEET (5) Diabetes Code(s): E11.9 - TYPE 2 DIABETES MELLITUS WITHOUT COMPLICATIONS a1c 6.9 bgm/iss - levemir
[2016-07-26 08:25] LABS: BASOPHIL 0.1 % (0-2.0); MCH 33.8 pg (25.7-33.7); MCHC 32.8 g/dl (32.0-35.9); MEAN CELL VOLUME 102.9 fl (80-96); NEUTROPHILS 92.2 % (42.8-82.8); PLATELET COUNT 88 K/MM3 (134-434); WHITE BLOOD COUNT 7.9 K/mm3 (4.0-10.0)
[2016-07-26 08:49] LABS: ALBUMIN 2.9 g/dl (3.4-5.0); CALCIUM 8.5 mg/dL (8.5-10.1); CREATININE 1.2 mg/dL (0.7-1.3)
[2016-07-26 08:52] LABS: BILIRUBIN,TOTAL 0.3 mg/dL (0.2-1.0); TOT PROT 5.7 g/dl (6.4-8.2)
[2016-07-26] MEDS: LEVOFLOXACIN 500 MG IVPB 100 ML IVPB SCH (09:32)
[2016-07-26] MEDS: LISINOPRIL 10 MG TABLET (FP) PO SCH (09:33)
[2016-07-26] MEDS: HEPARIN NA (PORCINE) 5,000 UNITS/ML 1ML VIAL SQ SCH ×2 (09:33→23:13)
[2016-07-26] MEDS: ASPIRIN 81 MG CHEWABLE TABLETS PO SCH (09:33)
[2016-07-26] MEDS: OSELTAMIVIR PHOSPHATE 75 MG CAPSULE PO SCH ×2 (09:33→23:12)
--- NOTE | 2016-07-26 11:00 | PN ---
Progress Note (short form) - Note Progress Note: Neurology Consult 75 yo consulted for gait difficulty and seen by Dr. Campbell. Was ambulating appropriately during my encounter and reports getting better. Medical management ongoing. Has underlying COPD, remains a smoker. On ASA 81mg for stroke prevention along with Statin. Active Medications Albuterol Sulfate (Ventolin 0.083% Nebulizer Soln -) 1 amp NEB QIDR [facility] Last Admin: 07/26/16 06:40 Dose: 1 amp Albuterol Sulfate (Ventolin 0.083% Nebulizer Soln -) 1 amp NEB Q4H PRN PRN Reason: SHORT OF BREATH/WHEEZING Aspirin (Asa -) 81 mg PO DAILY [facility] Last Admin: 07/26/16 09:33 Dose: 81 mg Atorvastatin Calcium (Lipitor -) 10 mg PO HS [facility] Last Admin: 07/25/16 21:12 Dose: 10 mg Heparin Sodium (Porcine) (Heparin -) 5,000 unit SQ BID [facility] Last Admin: 07/26/16 09:33 Dose: 5,000 unit Levofloxacin (Levaquin 500 Mg Premixed Ivpb -) 100 mls @ 100 mls/hr IVPB DAILY [facility] Last Admin: 07/26/16 09:32 Dose: 100 mls/hr Insulin Aspart (Novolog Vial Sliding Scale -) 1 vial SQ ACHS [facility] PRN Reason: Protocol Last Admin: 07/26/16 06:47 Dose: 4 units Insulin Detemir (Levemir Vial) 5 units SQ BID@0700,2200 [facility] Last Admin: 07/26/16 06:47 Dose: 5 units Lisinopril (Prinivil) 10 mg PO DAILY [facility] Last Admin: 07/26/16 09:33 Dose: 10 mg Methylprednisolone Sodium Succinate (Solu-Medrol -) 40 mg IVPB Q8H-IV [facility] Last Admin: 07/26/16 09:33 Dose: 40 mg Oseltamivir Phosphate (Tamiflu -) 75 mg PO BID [facility] Stop: 07/27/16 10:01 Last Admin: 07/26/16 09:33 Dose: 75 mg Physical Exam Vital Signs: Vital Signs Temperature 98.2 F 07/23/16 07:20 Pulse Rate 97 H 07/23/16 07:20 Respiratory Rate 20 07/23/16 07:20 Blood Pressure 105/58 07/23/16 07:20 O2 Sat by Pulse Oximetry (%) 96 01/06/17 07:20 Constitutional: Yes: Well Nourished, No Distress, Mild Distress (respiratory) HENT: Yes: Atraumatic Neck: Yes: Supple Cardiovascular: Yes: Regular Rate and Rhythm Gastrointestinal: Yes: Soft Neurological: Yes: Alert, Oriented, Cran Nerves II-XII Intact. No: Aphasia, Ataxia, Facial Droop, Loss of Sensation, Weakness Labs: CBCD WBC 7.9 K/mm3 (4.0-10.0) D 07/26/16 07:00 RBC 3.30 M/mm3 (4.00-5.60) L 07/26/16 07:00 Hgb 11.2 GM/dL (11.7-16.9) L 07/26/16 07:00 Hct 34.0 % (35.4-49) L 07/26/16 07:00 MCV 102.9 fl (80-96) H 07/26/16 07:00 MCHC 32.8 g/dl (32.0-35.9) 07/26/16 07:00 RDW 17.0 % (11.9-15.9) H 07/26/16 07:00 Plt Count 88 K/MM3 (134-434) L 07/26/16 07:00 MPV 12.0 fl (7.5-11.1) H 07/26/16 07:00 CMP Sodium 141 mmol/L (136-145) 07/26/16 07:00 Potassium 4.3 mmol/L (3.5-5.1) 07/26/16 07:00 Chloride 103 mmol/L (98-107) 07/26/16 07:00 Carbon Dioxide 29 mmol/L (21-32) 07/26/16 07:00 Anion Gap 9 (8-16) 07/26/16 07:00 BUN 27 mg/dL (7-18) H 07/26/16 07:00 Creatinine 1.2 mg/dL (0.7-1.3) 07/26/16 07:00 Creat Clearance w eGFR 58.71 (>60) 07/26/16 07:00 Calcium 8.5 mg/dL (8.5-10.1) 07/26/16 07:00 Total Bilirubin 0.3 mg/dL (0.2-1.0) D 07/26/16 07:00 AST 18 U/L (15-37) 07/26/16 07:00 ALT 24 U/L (12-78) 07/26/16 07:00 Alkaline Phosphatase 33 U/L (45-117) L 07/26/16 07:00 Total Protein 5.7 g/dl (6.4-8.2) L 07/26/16 07:00 Albumin 2.9 g/dl (3.4-5.0) L 07/26/16 07:00 Assessment/Plan 75 yo consulted for gait difficulty and seen by Dr. Campbell. Was ambulating appropriately during my encounter and reports getting better. Medical management ongoing. Has underlying COPD, remains a smoker. On ASA 81mg for stroke prevention along with Statin. Continue BP control, on Lisinopril, goal < 140/90. PT for physical conditioning and gait training.
--- NOTE | 2016-07-26 14:30 | PN ---
Progress Note, Physician History of Present Illness: Improved Less cough No c/o chest pain/ dyspnea Breathing non-labored on nasal cannula Afebrile WBC WNL CT chest R atelectasis - Current Medication List Current Medications: Active Medications Albuterol Sulfate (Ventolin 0.083% Nebulizer Soln -) 1 amp NEB QIDR [facility] Last Admin: 07/26/16 11:42 Dose: 1 amp Albuterol Sulfate (Ventolin 0.083% Nebulizer Soln -) 1 amp NEB Q4H PRN PRN Reason: SHORT OF BREATH/WHEEZING Aspirin (Asa -) 81 mg PO DAILY [facility] Last Admin: 07/26/16 09:33 Dose: 81 mg Atorvastatin Calcium (Lipitor -) 10 mg PO HS [facility] Last Admin: 07/25/16 21:12 Dose: 10 mg Heparin Sodium (Porcine) (Heparin -) 5,000 unit SQ BID [facility] Last Admin: 07/26/16 09:33 Dose: 5,000 unit Levofloxacin (Levaquin 500 Mg Premixed Ivpb -) 100 mls @ 100 mls/hr IVPB DAILY [facility] Last Admin: 07/26/16 09:32 Dose: 100 mls/hr Insulin Aspart (Novolog Vial Sliding Scale -) 1 vial SQ ACHS [facility] PRN Reason: Protocol Last Admin: 07/26/16 11:48 Dose: 6 units Insulin Detemir (Levemir Vial) 5 units SQ BID@0700,2200 [facility] Last Admin: 07/26/16 06:47 Dose: 5 units Lisinopril (Prinivil) 10 mg PO DAILY [facility] Last Admin: 07/26/16 09:33 Dose: 10 mg Methylprednisolone Sodium Succinate (Solu-Medrol -) 40 mg IVPB Q8H-IV [facility] Last Admin: 07/26/16 09:33 Dose: 40 mg Oseltamivir Phosphate (Tamiflu -) 75 mg PO BID [facility] Stop: 07/27/16 10:01 Last Admin: 07/26/16 09:33 Dose: 75 mg - Objective Vital Signs: Vital Signs Temperature 98.2 F 07/26/16 14:03 Pulse Rate 76 07/26/16 14:03 Respiratory Rate 20 07/26/16 09:55 Blood Pressure 133/58 07/26/16 14:03 O2 Sat by Pulse Oximetry (%) 94 L 07/26/16 09:00 Constitutional: Yes: No Distress Eyes: Yes: Conjunctiva Clear Cardiovascular: Yes: Regular Rate and Rhythm, S1, S2 Respiratory: Yes: Rhonchi Gastrointestinal: Yes: Normal Bowel Sounds, Soft. No: Tenderness Labs: CBC, BMP 07/26/16 07:00 07/26/16 07:00 INR, PTT INR 1.30 (0.82-1.09) H 07/22/16 21:25 Assessment/Plan Acute influenza A- improved Exacerbation COPD Leukocytosis- resolved Thrombocytopenia Complete 5d course of Tamiflu Switch to po levaquin x 3d
[2016-07-26 15:28] LABS: MCH 32.6 pg (25.7-33.7); MCHC 31.8 g/dl (32.0-35.9); MEAN CELL VOLUME 102.5 fl (80-96); MEAN PLT VOLUME 12.4 fl (7.5-11.1); PLATELET COUNT 97 K/MM3 (134-434); WHITE BLOOD COUNT 9.7 K/mm3 (4.0-10.0)
--- NOTE | 2016-07-26 15:32 | PN ---
Progress Note, Physician History of Present Illness: PULMONARY ALERT,FEELING BETTER,LESS CONGESTED - Current Medication List Current Medications: Active Medications Albuterol Sulfate (Ventolin 0.083% Nebulizer Soln -) 1 amp NEB QIDR [facility] Last Admin: 07/26/16 11:42 Dose: 1 amp Albuterol Sulfate (Ventolin 0.083% Nebulizer Soln -) 1 amp NEB Q4H PRN PRN Reason: SHORT OF BREATH/WHEEZING Aspirin (Asa -) 81 mg PO DAILY [facility] Last Admin: 07/26/16 09:33 Dose: 81 mg Atorvastatin Calcium (Lipitor -) 10 mg PO HS [facility] Last Admin: 07/25/16 21:12 Dose: 10 mg Heparin Sodium (Porcine) (Heparin -) 5,000 unit SQ BID [facility] Last Admin: 07/26/16 09:33 Dose: 5,000 unit Insulin Aspart (Novolog Vial Sliding Scale -) 1 vial SQ ACHS [facility] PRN Reason: Protocol Last Admin: 07/26/16 11:48 Dose: 6 units Insulin Detemir (Levemir Vial) 5 units SQ BID@0700,2200 [facility] Last Admin: 07/26/16 06:47 Dose: 5 units Levofloxacin (Levaquin -) 500 mg PO DAILY@0600 [facility] Lisinopril (Prinivil) 10 mg PO DAILY [facility] Last Admin: 07/26/16 09:33 Dose: 10 mg Methylprednisolone Sodium Succinate (Solu-Medrol -) 40 mg IVPB Q8H-IV [facility] Last Admin: 07/26/16 09:33 Dose: 40 mg Oseltamivir Phosphate (Tamiflu -) 75 mg PO BID [facility] Stop: 07/27/16 10:01 Last Admin: 07/26/16 09:33 Dose: 75 mg - Objective Vital Signs: Vital Signs Temperature 98.2 F 07/26/16 14:03 Pulse Rate 76 07/26/16 14:03 Respiratory Rate 20 07/26/16 09:55 Blood Pressure 133/58 07/26/16 14:03 O2 Sat by Pulse Oximetry (%) 94 L 07/26/16 09:00 Constitutional: Yes: Well Nourished, Calm Eyes: Yes: WNL HENT: Yes: WNL Neck: Yes: WNL Cardiovascular: Yes: Regular Rate and Rhythm, S1, S2 Respiratory: Yes: Wheezes (LESS WHEEZES SHADIA) Gastrointestinal: Yes: Normal Bowel Sounds, Soft Extremities: Yes: WNL Edema: No Labs: CBC, BMP 07/26/16 15:00 07/26/16 07:00 INR, PTT INR 1.30 (0.82-1.09) H 07/22/16 21:25 Assessment/Plan Problem List - Problems (1) Acute exacerbation of chronic obstructive pulmonary disease (COPD) Code(s): J44.1 - CHRONIC OBSTRUCTIVE PULMONARY DISEASE W (ACUTE) EXACERBATION (2) Elevated troponin Code(s): R79.89 - OTHER SPECIFIED ABNORMAL FINDINGS OF BLOOD CHEMISTRY (3) Influenza A Code(s): J10.1 - FLU DUE TO OTH IDENT INFLUENZA VIRUS W OTH RESP MANIFEST (4) Unsteady gait Code(s): R26.81 - UNSTEADINESS ON FEET THROMBOCYTOPENIA Assessment/Plan PLAN: Taper Medrol O2 as needed to maintain saturation BD TX Tamiflu PFTs outpatient Low dose chest ct solumedrol same dose monitor plt ct DR DUCKWORTH
[2016-07-26 16:56] LABS: PLATELET ESTIMATE SLT DECREASED (NORMAL)
[2016-07-26 16:57] LABS: TOXIC GRANULATION FEW
--- NOTE | 2016-07-26 17:15 | PN ---
Progress Note (short form) - Note Progress Note: Renal Follow up for KANG Pt seen and examined at the bedside no acute complaints but concerned about his elevated blood glucose No chest pain or sob Vital Signs Temperature 98.2 F 07/26/16 14:03 Pulse Rate 76 07/26/16 14:03 Respiratory Rate 20 07/26/16 09:55 Blood Pressure 133/58 07/26/16 14:03 O2 Sat by Pulse Oximetry (%) 94 L 07/26/16 09:00 Intake & Output 07/23/16 07/24/16 07/25/16 07/26/16 23:59 23:59 23:59 23:59 Intake Total 180 3000 570 5924 Balance 180 7067 536 3450 Weight 162 lb Gen: NAD, awake and alert HEENT: NC/AT, MMM, NO JVD CVS: RRR, No M/R Lungs: CTA Abd: Soft NT/ND Ext: no edema, clubbing or cyanosis CBC, BMP 07/26/16 15:00 07/26/16 07:00 Laboratory Tests 07/23/16 07/23/16 07/26/16 08:00 09:50 07:00 Calcium 8.0 L 8.5 Creatine Kinase Albumin 3.3 L 2.9 L Urine Protein 2+ H Urine Glucose (UA) 3+ H Urine Blood 2+ H 07/26/16 07:00 Calcium Creatine Kinase 334 H D Albumin Urine Protein Urine Glucose (UA) Urine Blood Current Medications Albuterol Sulfate (Ventolin 0.083% Nebulizer Soln -) 1 amp NEB QIDR [facility] Last Admin: 07/26/16 11:42 Dose: 1 amp Albuterol Sulfate (Ventolin 0.083% Nebulizer Soln -) 1 amp NEB Q4H PRN PRN Reason: SHORT OF BREATH/WHEEZING Aspirin (Asa -) 81 mg PO DAILY [facility] Last Admin: 07/26/16 09:33 Dose: 81 mg Atorvastatin Calcium (Lipitor -) 10 mg PO HS [facility] Last Admin: 07/25/16 21:12 Dose: 10 mg Heparin Sodium (Porcine) (Heparin -) 5,000 unit SQ BID [facility] Last Admin: 07/26/16 09:33 Dose: 5,000 unit Insulin Aspart (Novolog Vial Sliding Scale -) 1 vial SQ ACHS [facility] PRN Reason: Protocol Last Admin: 07/26/16 11:48 Dose: 6 units Insulin Detemir (Levemir Vial) 5 units SQ BID@0700,2200 [facility] Last Admin: 07/26/16 06:47 Dose: 5 units Levofloxacin (Levaquin -) 500 mg PO DAILY@0600 [facility] Lisinopril (Prinivil) 10 mg PO DAILY [facility] Last Admin: 07/26/16 09:33 Dose: 10 mg Methylprednisolone Sodium Succinate (Solu-Medrol -) 40 mg IVPB Q12H [facility] Oseltamivir Phosphate (Tamiflu -) 75 mg PO BID [facility] Stop: 07/27/16 10:01 Last Admin: 07/26/16 09:33 Dose: 75 mg A/P 75 year old Gentleman with PMhx of Hypertension, DM Type 2, COPD who presented with complaints of sob s/p failed neb and oral prednisone Tx at urgent care center and found to have BUN/Cr of 21/1.8. #Acute vs. Chronic Renal insufficiency with proteinuria Renal function now improved to baseline good urine output off IVF #COPD/SOB Continue steroids/Nebs Pulmonary follow up #Hypertension BP is at gaol on Lisinopril #DM Type 2 Insulin sliding scale can resume metformin Holland Jaquez DO
[2016-07-26] MEDS ORDERED: INSULIN (NOVOLOG) ASPART 100 UNITS/ML 10ML VIAL ONE ×2 (17:35→23:09)
[2016-07-26] MEDS ORDERED: methylPREDNISolone NA SUCC 40 MG/1 ML VIAL IVPB SCH (22:00)
[2016-07-26] MEDS: ATORVASTATIN CA 10 MG TABLET (FP) PO SCH (23:13)
[2016-07-27] MEDS: ALBUTEROL SO4 0.083% IH SOL 2.5 MG/3 ML VIAL.NEB. NEB SCH ×4 (00:30→17:10)
[2016-07-27] MEDS ORDERED: LEVOFLOXACIN 500 MG TABLET (FP) PO SCH (06:00)
[2016-07-27] MEDS: INSULIN SLIDING SCALE (NOVOLOG) 1 VIAL SQ SCH ×3 (06:26→16:59)
[2016-07-27] MEDS: INSULIN DETEMIR 100 UNITS/ML MDV SQ SCH (06:34)
--- NOTE | 2016-07-27 09:39 | PN ---
Progress Note, Physician History of Present Illness: FEELS BETTER TODAY - Current Medication List Current Medications: Active Medications Albuterol Sulfate (Ventolin 0.083% Nebulizer Soln -) 1 amp NEB QIDR [facility] Last Admin: 07/27/16 07:00 Dose: 1 amp Albuterol Sulfate (Ventolin 0.083% Nebulizer Soln -) 1 amp NEB Q4H PRN PRN Reason: SHORT OF BREATH/WHEEZING Aspirin (Asa -) 81 mg PO DAILY [facility] Last Admin: 07/26/16 09:33 Dose: 81 mg Atorvastatin Calcium (Lipitor -) 10 mg PO HS [facility] Last Admin: 07/26/16 23:13 Dose: 10 mg Heparin Sodium (Porcine) (Heparin -) 5,000 unit SQ BID [facility] Last Admin: 07/26/16 23:13 Dose: 5,000 unit Insulin Aspart (Novolog Vial Sliding Scale -) 1 vial SQ ACHS [facility] PRN Reason: Protocol Last Admin: 07/27/16 06:26 Dose: Not Given Insulin Detemir (Levemir Vial) 5 units SQ BID@0700,2200 [facility] Last Admin: 07/27/16 06:34 Dose: 5 units Levofloxacin (Levaquin -) 500 mg PO DAILY@0600 [facility] Last Admin: 07/27/16 06:35 Dose: 500 mg Lisinopril (Prinivil) 10 mg PO DAILY [facility] Last Admin: 07/26/16 09:33 Dose: 10 mg Oseltamivir Phosphate (Tamiflu -) 75 mg PO BID [facility] Stop: 07/27/16 10:01 Last Admin: 07/26/16 23:12 Dose: 75 mg Prednisone (Deltasone -) 30 mg PO DAILY [facility] - Objective Vital Signs: Vital Signs Temperature 97.3 F L 07/27/16 08:02 Pulse Rate 78 07/27/16 08:02 Respiratory Rate 20 07/27/16 08:02 Blood Pressure 138/58 07/27/16 08:02 O2 Sat by Pulse Oximetry (%) 98 07/26/16 22:00 Cardiovascular: Yes: Regular Rate and Rhythm Respiratory: Yes: Regular, CTA Bilaterally Gastrointestinal: Yes: Normal Bowel Sounds, Soft Edema: No Labs: CBC, BMP 07/26/16 15:00 07/26/16 07:00 INR, PTT INR 1.30 (0.82-1.09) H 07/22/16 21:25 Assessment/Plan Assessment/Plan (1) Acute exacerbation of chronic obstructive pulmonary disease (COPD) Assessment/Plan: pulm iv abx--ON PO iv steroids--TO PO oxygen bronchodilators tamiflu droplet precautions CT OF CHEST Code(s): J44.1 - CHRONIC OBSTRUCTIVE PULMONARY DISEASE W (ACUTE) EXACERBATION (2) Influenza A Assessment/Plan: tamiflu Code(s): J10.1 - FLU DUE TO OTH IDENT INFLUENZA VIRUS W OTH RESP MANIFEST (3) Elevated troponin Assessment/Plan: trending up -> f/u tele echo asa,statin, Prinivil cardio eval appreciated Code(s): R79.89 - OTHER SPECIFIED ABNORMAL FINDINGS OF BLOOD CHEMISTRY (4) Unsteady gait Assessment/Plan: ct head neuro ent for PICAYUNE and r/o inner ear etiology for gait disturbance PT dvt ppx Code(s): R26.81 - UNSTEADINESS ON FEET (5) Diabetes Code(s): E11.9 - TYPE 2 DIABETES MELLITUS WITHOUT COMPLICATIONS a1c 6.9 [facility]
--- NOTE | 2016-07-27 09:43 | DS ---
Physical Examination Vital Signs: Vital Signs Temperature 97.3 F L 07/27/16 08:02 Pulse Rate 78 07/27/16 08:02 Respiratory Rate 20 07/27/16 08:02 Blood Pressure 138/58 07/27/16 08:02 O2 Sat by Pulse Oximetry (%) 98 07/26/16 22:00 Labs: CBC, BMP 07/26/16 15:00 07/26/16 07:00 Discharge Summary Reason For Visit: COPD EXACERBATION INFLUENZA A Current Active Problems Acute exacerbation of chronic obstructive pulmonary disease (COPD) (Acute) Acute kidney failure (Acute) Diabetes (Acute) Elevated troponin (Acute) Influenza A (Acute) Rhabdomyolysis (Acute) Unsteady gait (Acute) - Instructions Referrals: Parish Pacheco [Primary Care Provider] - 1 Week Jen Herrera MD [Staff Physician] - 1 Week - Home Medications Comprehensive Discharge Medication List: Ambulatory Orders Aspirin [ASA -] 81 mg PO DAILY 07/22/16 Glipizide 10 mg PO DAILY 07/22/16 Lisinopril 20 mg PO DAILY 07/22/16 Metformin HCl 500 mg PO DAILY 07/22/16 Simvastatin 20 mg PO DAILY 07/22/16 Levofloxacin [Levaquin -] 500 mg PO DAILY@0600 #5 tablet 07/27/16 Prednisone [Deltasone -] 30 mg PO DAILY #12 tablet 07/27/16
[2016-07-27] MEDS ORDERED: predniSONE 10 MG TABLET (UD) PO SCH (10:00)
[2016-07-27] MEDS: HEPARIN NA (PORCINE) 5,000 UNITS/ML 1ML VIAL SQ SCH (10:09)
[2016-07-27] MEDS: LISINOPRIL 10 MG TABLET (FP) PO SCH (10:09)
[2016-07-27] MEDS: ASPIRIN 81 MG CHEWABLE TABLETS PO SCH (10:09)
[2016-07-27] MEDS: OSELTAMIVIR PHOSPHATE 75 MG CAPSULE PO SCH (10:10)
--- NOTE | 2016-07-27 10:57 | PN ---
Progress Note (short form) - Note Progress Note: Neurology Consult 75 yo consulted for gait difficulty and seen by Dr. Campbell. Was ambulating appropriately during my encounter and reports getting better and for discharge today. No new events overnight. Has underlying COPD, remains a smoker. On ASA 81mg for stroke prevention along with Statin. Completing course of Tamiflu today. Active Medications Albuterol Sulfate (Ventolin 0.083% Nebulizer Soln -) 1 amp NEB QIDR [facility] Last Admin: 07/26/16 06:40 Dose: 1 amp Albuterol Sulfate (Ventolin 0.083% Nebulizer Soln -) 1 amp NEB Q4H PRN PRN Reason: SHORT OF BREATH/WHEEZING Aspirin (Asa -) 81 mg PO DAILY [facility] Last Admin: 07/26/16 09:33 Dose: 81 mg Atorvastatin Calcium (Lipitor -) 10 mg PO HS [facility] Last Admin: 07/25/16 21:12 Dose: 10 mg Heparin Sodium (Porcine) (Heparin -) 5,000 unit SQ BID [facility] Last Admin: 07/26/16 09:33 Dose: 5,000 unit Levofloxacin (Levaquin 500 Mg Premixed Ivpb -) 100 mls @ 100 mls/hr IVPB DAILY [facility] Last Admin: 07/26/16 09:32 Dose: 100 mls/hr Insulin Aspart (Novolog Vial Sliding Scale -) 1 vial SQ ACHS [facility] PRN Reason: Protocol Last Admin: 07/26/16 06:47 Dose: 4 units Insulin Detemir (Levemir Vial) 5 units SQ BID@0700,2200 [facility] Last Admin: 07/26/16 06:47 Dose: 5 units Lisinopril (Prinivil) 10 mg PO DAILY [facility] Last Admin: 07/26/16 09:33 Dose: 10 mg Methylprednisolone Sodium Succinate (Solu-Medrol -) 40 mg IVPB Q8H-IV [facility] Last Admin: 07/26/16 09:33 Dose: 40 mg Oseltamivir Phosphate (Tamiflu -) 75 mg PO BID [facility] Stop: 07/27/16 10:01 Last Admin: 07/26/16 09:33 Dose: 75 mg Physical Exam Vital Signs Period Temp Pulse Resp BP Sys/[place] Pulse Ox Last 24 Hr 97.3 F-98.2 F 63-78 18-20 107-138/58-64 98 Constitutional: Yes: Well Nourished, No Distress, Mild Distress (respiratory) HENT: Yes: Atraumatic Neck: Yes: Supple Cardiovascular: Yes: Regular Rate and Rhythm Gastrointestinal: Yes: Soft Neurological: Yes: Alert, Oriented, Cran Nerves II-XII Intact. No: Aphasia, Ataxia, Facial Droop, Loss of Sensation, Weakness Labs: CBCD WBC 7.9 K/mm3 (4.0-10.0) D 07/26/16 07:00 RBC 3.30 M/mm3 (4.00-5.60) L 07/26/16 07:00 Hgb 11.2 GM/dL (11.7-16.9) L 07/26/16 07:00 Hct 34.0 % (35.4-49) L 07/26/16 07:00 MCV 102.9 fl (80-96) H 07/26/16 07:00 MCHC 32.8 g/dl (32.0-35.9) 07/26/16 07:00 RDW 17.0 % (11.9-15.9) H 07/26/16 07:00 Plt Count 88 K/MM3 (134-434) L 07/26/16 07:00 MPV 12.0 fl (7.5-11.1) H 07/26/16 07:00 CMP Sodium 141 mmol/L (136-145) 07/26/16 07:00 Potassium 4.3 mmol/L (3.5-5.1) 07/26/16 07:00 Chloride 103 mmol/L (98-107) 07/26/16 07:00 Carbon Dioxide 29 mmol/L (21-32) 07/26/16 07:00 Anion Gap 9 (8-16) 07/26/16 07:00 BUN 27 mg/dL (7-18) H 07/26/16 07:00 Creatinine 1.2 mg/dL (0.7-1.3) 07/26/16 07:00 Creat Clearance w eGFR 58.71 (>60) 07/26/16 07:00 Calcium 8.5 mg/dL (8.5-10.1) 07/26/16 07:00 Total Bilirubin 0.3 mg/dL (0.2-1.0) D 07/26/16 07:00 AST 18 U/L (15-37) 07/26/16 07:00 ALT 24 U/L (12-78) 07/26/16 07:00 Alkaline Phosphatase 33 U/L (45-117) L 07/26/16 07:00 Total Protein 5.7 g/dl (6.4-8.2) L 07/26/16 07:00 Albumin 2.9 g/dl (3.4-5.0) L 07/26/16 07:00 Assessment/Plan 75 yo consulted for gait difficulty and seen by Dr. Campbell. Was ambulating appropriately during my encounter and reports getting better. Medical management ongoing. Has underlying COPD, remains a smoker. On ASA 81mg for stroke prevention along with Statin. Continue BP control, on Lisinopril, goal <140/90. Completes Tamiflu course today PT for physical conditioning and gait training.
[2016-07-27] MEDS ORDERED: INSULIN (NOVOLOG) ASPART 100 UNITS/ML 10ML VIAL ONE ×2 (11:32→16:48)
--- NOTE | 2016-07-27 12:21 | PN ---
Progress Note (short form) - Note Progress Note: PULMONARY Breathing continues to improve. Mild cough and wheezing. No fevers or chills. Last Vital Signs Temp Pulse Resp BP Pulse Ox 97.3 F L 78 20 138/58 98 07/27/16 08:02 07/27/16 08:02 07/27/16 08:02 07/27/16 08:02 07/26/16 22:00 Gen: NAD at rest Heart: RRR Lung: scattered wheezes Abd: soft, nontender Ext: no edema CBC, BMP 07/26/16 15:00 07/26/16 07:00 Active Medications Albuterol Sulfate (Ventolin 0.083% Nebulizer Soln -) 1 amp NEB QIDR [facility] Last Admin: 07/27/16 11:30 Dose: 1 amp Albuterol Sulfate (Ventolin 0.083% Nebulizer Soln -) 1 amp NEB Q4H PRN PRN Reason: SHORT OF BREATH/WHEEZING Aspirin (Asa -) 81 mg PO DAILY [facility] Last Admin: 07/27/16 10:09 Dose: 81 mg Atorvastatin Calcium (Lipitor -) 10 mg PO HS [facility] Last Admin: 07/26/16 23:13 Dose: 10 mg Heparin Sodium (Porcine) (Heparin -) 5,000 unit SQ BID [facility] Last Admin: 07/27/16 10:09 Dose: 5,000 unit Insulin Aspart (Novolog Vial Sliding Scale -) 1 vial SQ ACHS [facility] PRN Reason: Protocol Last Admin: 07/27/16 11:51 Dose: 2 units Insulin Detemir (Levemir Vial) 5 units SQ BID@0700,2200 [facility] Last Admin: 07/27/16 06:34 Dose: 5 units Levofloxacin (Levaquin -) 500 mg PO DAILY@0600 [facility] Last Admin: 07/27/16 06:35 Dose: 500 mg Lisinopril (Prinivil) 10 mg PO DAILY [facility] Last Admin: 07/27/16 10:09 Dose: 10 mg Prednisone (Deltasone -) 30 mg PO DAILY [facility] Last Admin: 07/27/16 10:09 Dose: 30 mg A/P Acute COPD Exacerbation Influenza A +Troponins Thrombocytopenia - complete antibiotics - prednisone taper - inhaled bronchodilators - DVT prophylaxis - outpt PFTs
[2016-07-27 14:05] VITALS: BP 120/61; PULSE 75; TEMP 98.1
== END 2016-07-27 18:58 | disposition home or self-care (01) | DRG 194 ==
LOC: JER 18:42 → JERBED 07-23 00:42 → UNDOADMIN 07-23 01:14 → J6S 07-23 19:25
PROVIDERS: ADMIT Family Medicine; ATTEND Family Medicine
DX: J09.X2 Influenza due to identified novel influenza A virus with other respiratory manifestations (principal); J44.1 Chronic obstructive pulmonary disease with (acute) exacerbation; M62.82 Rhabdomyolysis; N17.9 Acute kidney failure, unspecified; R26.81 Unsteadiness on feet; D69.6 Thrombocytopenia, unspecified; E11.9 Type 2 diabetes mellitus without complications; F17.210 Nicotine dependence, cigarettes, uncomplicated; D72.829 Elevated white blood cell count, unspecified
CPT/HCPCS: 36415; 70450-TC; 71020-TC; 71250-TC; 76775-TC; 80053; 80061; 81003; 81015; 82436; 82550; 82553; 82570; 82947; 83036; 83721; 83735; 84100; 84133; 84156; 84300; 84484; 85025; 85610; 87040; 87804; 93005; 93010; 93306-TC; 94640; 97116-GP; 97163-GP; 99284-25; J1644